=== PATIENT | male | born 1980 | race Caucasian/White ===

== ENCOUNTER → 2016-09-08 | Outpatient (CLI) | payer BC ==
--- NOTE | 2016-09-08 22:05 | MR ---
EXAMINATION TYPE: MR lumbar spine wo con DATE OF EXAM: 09/08/2016 9:57 PM COMPARISON: 11/18/2014 HISTORY: Lumbago TECHNIQUE: T1 and T2 axial and sagittal images of the lumbar spine are submitted. FINDINGS: There is no abnormal signal seen within the visualized spinal cord or paraspinal soft tissu es. Exam limited by motion artifact. At L1-2 there is no disc herniation or canal stenosis. No foraminal encroachment. No degenerative dis c disease. At L2-3 there is no degenerative disc disease, disc herniation, canal stenosis, or foraminal encroach ment At L3-4 there is a new focal central large disc herniation with significant compression of the thecal sac. Neural foramina remain patent. At L4-5 there is no disc herniation or canal stenosis. No foraminal encroachment. No degenerative dis c disease At L5-S1 there is discogenic marrow changes and severe degenerative disc disease. Broad-based central disc bulging or protrusion results in mild effacement of thecal sac and moderate to severe bilateral foraminal encroachment greater on the left. IMPRESSION: 1. New large central disc herniation L3-L4 with significant compression of the thecal sac. 2. Stable severe degenerative disc disease with broad-based central disc bulging L5-S1. Mild effaceme nt of thecal sac and moderate to severe bilateral foraminal encroachment.
--- NOTE | 2016-09-08 22:12 | MR ---
EXAMINATION TYPE: MR shoulder LT wo con DATE OF EXAM: 09/08/2016 9:57 PM COMPARISON: NONE HISTORY: Pain in left shoulder TECHNIQUE: Multiplanar, multisequence imaging of the left shoulder is performed without contrast. FINDINGS: Rotator Cuff: There is bursal scuffing along the distal margin of the supraspinatus tendon. There is intrinsic abnormal signal involving the insertion and distal margin of the infraspinatus tendon johanne tible with tendinosis. There is no evidence of through thickness tear or retraction Acromioclavicular Joint: Appears to be edema involving the acromion incomplete vallecular joint and a djacent marrow. There is no significant mass effect upon the rotator cuff tendons. AC joint distance appears within normal limits. Glenohumeral Joint: Joint spaces preserved. Inferior glenohumeral ligament has a normal appearance. N o sizable joint effusion. Labrum: The labrum appears grossly intact given limitation of non-arthrogram study. Biceps Tendon: The long head of biceps is in normal location within bicipital groove. Small amount of fluid is seen in the bicipital sheath. Bone marrow signal: Marrow edema is seen within the acromion and clavicle at the level of the AC join t. No fracture line. Joint distance within normal limits. IMPRESSION: 1. Bursal scuffing along the distal margin of the supraspinatus tendon with no evidence of through th ickness tear. 2. Tendinopathy of the distal margin of the infraspinatus tendon extending to the insertion with no e vidence of through thickness tear or traction. 3. Nonspecific marrow edema involving the acromium and clavicle at the level of the AC joint. This ma y BE reactive and related the AC joint arthropathy. Correlate clinically. 4. Mild bicipital tendinosis.
== END | disposition home or self-care (01) ==
LOC: RADMRIMAIN 20:39
PROVIDERS: ATTEND Nurse Practitioner Family
DX: M51.37 Other intervertebral disc degeneration, lumbosacral region (principal); M51.27 Other intervertebral disc displacement, lumbosacral region; M67.814 Other specified disorders of tendon, left shoulder
CPT/HCPCS: 72148

== ENCOUNTER → 2016-10-03 | Outpatient (CLI) | payer BC ==
--- NOTE | 2016-10-03 20:40 | CONS ---
This patient is a 36-year-old male with previous history of substance abuse, IVDA and alcoholism, is coming in for a sleep apnea evaluation, as the patient has been noted to snore very loudly and having apneas as reported by his girlfriend. He has also woken up on multiple occasions refluxing and vomiting. This has improved upon the treatment with Prilosec. He is still, however, snoring very loud and he wakes up once or twice to go to the bathroom and urinate. He goes to bed around 9:00 to 10:00 p.m., wakes up at 6:00 a.m. in the morning. 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 He goes also for narcotic cessation meetings around 7:00 p.m. He seems to be quite alert and awake during the day. Some degree of fatigue, yet there is no major sleepiness and Bessemer score is only at 4. He sleeps in a sidewise body position. He has a bedroom TV that he on and off uses. He has gained around 60 pounds over the past 5 years at least. He has no sleep paralysis. No hallucinations. No cataplexy. He has a positive family history that his mother and aunt have both obstructive sleep apnea. Note that the patient has been history of substance free and he has quit doing IVDA/heroin for the past 18 months. He has also stopped drinking for more than 3 years. He has hepatitis C and he is being treated by Gastroenterology for chronic active hepatitis. PAST MEDICAL HISTORY: Obesity, chronic back pain, depression, hepatitis C, IVDA, hepatitis C-induced liver injury/chronic active hepatitis. Past surgical history is cholecystectomy. Drug allergies are not known. Outpatient medication includes: 1. Naprosyn and 2. [place]. SOCIAL HISTORY: The patient is a smoker 1 pack of cigarettes a day. He has remote history of alcoholism, quit 3 years ago. He has history of IVDA, clean for the past 18 months. FAMILY HISTORY: Positive for heart disease, sleep apnea, COPD, diabetes mellitus and thyroid disease in the mother, sleep apnea in the aunt and the father is not known. REVIEW OF SYSTEMS: Twelve-point review of systems was done and the positive findings were all mentioned above in the history of present illness. BP is 159/82, pulse 86, respirations 16, temperature 97.7, saturation 96% on room air, weight 283. Height is 6 feet 0 inches. Neck size 17 inches. BMI is 37.8. Mallampati class IV. GENERAL APPEARANCE: Calm, comfortable. HEENT: Short neck, crowding posterior pharynx. There is no goiter, neck mass. LUNGS: Diminished; otherwise clear. Heart sounds are regular rate and rhythm. Normal S1 and S2. No S3. No S4. No murmurs. ABDOMEN: Soft, nontender. No organomegaly. EXTREMITIES: No edema. No cyanosis or clubbing. IMPRESSION: 1. Obstructive sleep apnea suspected clinically. The patient needs to be further investigated. 2. Obesity, body mass index of 37.8. 3. Intravenous drug abuse, history of. 4. Chronic active hepatitis, history of. 5. Hepatitis C viral infection. 6. Depression. 7. Chronic back pain. 8. History of alcoholism. PLAN: 1. Proceed with a screening polysomnogram. 2. Encourage weight loss. 3. Look for any metabolic factors, including chronic liver disease, contributing to his chronic fatigue and tiredness. 4. Implement good sleep hygiene measures. 5. Will continue to follow.
== END | disposition home or self-care (01) ==
LOC: SLEEP 15:47
PROVIDERS: ATTEND Internal Medicine Critical Care Medicine
DX: G47.33 Obstructive sleep apnea (adult) (pediatric) (principal); E66.9 Obesity, unspecified; B19.20 Unspecified viral hepatitis C without hepatic coma; F32.9 Major depressive disorder, single episode, unspecified; M54.9 Dorsalgia, unspecified; G89.29 Other chronic pain; Z68.37 Body mass index [BMI] 37.0-37.9, adult; Z79.899 Other long term (current) drug therapy; Z79.1 Long term (current) use of non-steroidal anti-inflammatories (NSAID); F17.200 Nicotine dependence, unspecified, uncomplicated
CPT/HCPCS: 99211

== ENCOUNTER → 2016-10-10 | Outpatient (CLI) | payer BC ==
[2016-10-10 15:33] LABS: Basophils % (A) 1 %; CH 31.2; CHCM 34.1; Eosinophils # (A) 0.2 k/uL (0-0.7); Eosinophils % (A) 2 %; HCT 44.7 % (39.0-53.0); HDW 2.56; HGB 15.6 gm/dL (13.0-17.5); Luc # (Auto) 0.19; Luc % (Auto) 3; Lymphocytes # (A) 3.5 k/uL (1.0-4.8); Lymphocytes % (A) 45 %; MCH 31.9 pg (25.0-35.0); MCHC 34.8 g/dL (31.0-37.0); MCV 91.6 fL (80.0-100.0); Monocytes # (A) 0.5 k/uL (0-1.0); Monocytes % (A) 6 %; Neutrophils # (A) 3.4 k/uL (1.3-7.7); Neutrophils % (A) 44 %; RBC 4.88 m/uL (4.30-5.90); RDW 13.2 % (11.5-15.5); WBC 7.7 k/uL (3.8-10.6); WBC (Perox) 7.72
[2016-10-10 15:49] LABS: Bilirubin, Delta 0.5 mg/dL (0.0-0.2); Total Bilirubin 0.8 mg/dL (0.2-1.3); Total Protein 7.3 g/dL (6.3-8.2)
[2016-10-13 15:01] LABS: HCV Qualitative Result DETECTED (Not detected)
== END | disposition home or self-care (01) ==
LOC: LABWHC1 14:49
PROVIDERS: ATTEND Physician Assistant
DX: B18.2 Chronic viral hepatitis C (principal)
CPT/HCPCS: 36415; 80076; 85025; 87522; 87902

== ENCOUNTER 2016-11-08 11:44 | Emergency (ER) | payer BC, OTHER ==
[2016-11-08] MEDS ORDERED: SODIUM CHLORIDE 0.9% 1,000 ML IV STA (12:07)
[2016-11-08] MEDS ORDERED: ASPIRIN 81 MG CHEW PO STA (12:07)
--- NOTE | 2016-11-08 12:15 | ED ---
Chest Pain HPI - General Stated Complaint: CO Poisoning-[facility] Time Seen by Provider: 11/08/16 12:04 Source: patient, RN notes reviewed Mode of arrival: EMS Limitations: no limitations - History of Present Illness Initial Comments: 36-year-old male presents to the emergency department with a chief complaint of chest pain and shortness of breath. 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 Patient states he had this episode of chest pain that radiates up to his left chest. Patient stated he felt short of breath at this time. Patient states that that has since resolved. Patient doesn't know if his anxiety or chest pain. He is under a lot of stress. 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 The patient stated this time the chest pain is gone and he is feeling better. Patient states he is not currently having any other symptoms. Patient does admit to a family history of sister having heart attack at age 40. Patient denies any recent fever , chills, shortness of breath, back pain, abdominal pain, nausea vomiting, numbness or tingling, dysuria or hematuria, constipation or diarrhea, headaches or visual changes, or any other current symptoms. - Related Data Home Medications Medication Instructions Recorded Confirmed Gabapentin [Gabapentin] 800 mg PO QID 11/08/16 11/08/16 HYDROcodone/APAP 7.5-325MG [[place] 1 tab PO BID PRN 11/08/16 11/08/16 7.5-325] Allergies Allergy/AdvReac Type Severity Reaction Status Date / Time No Known Allergies Allergy Verified 11/08/16 12:13 Review of Systems ROS Statement: Those systems with pertinent positive or pertinent negative responses have been documented in the HPI. ROS Other: All systems not noted in ROS Statement are negative. EKG Findings - EKG Comments: EKG Findings:: normal sinus rhythm 97 bpm, normal axis, no atopy, no S-T depressions or elevations, Past Medical History Past Medical History: No Reported History Additional Past Medical History / Comment(s): chronic back pain History of Any Multi-Drug Resistant Organisms: None Reported Past Surgical History: Cholecystectomy Past Psychological History: Depression Smoking Status: Current every day smoker Past Alcohol Use History: None Reported Past Drug Use History: None Reported General Exam - General Exam Comments Initial Comments: General: The patient is awake and alert, in no distress, and does not appear acutely ill. Eye: Pupils are equal, round and reactive to light. Ears, nose, mouth and throat: There are moist mucous membranes. Neck: The neck is supple, there is no tenderness. Cardiovascular: There is a regular rate and rhythm. No murmur, rub or gallop is appreciated. Respiratory: Lungs are clear to auscultation, respirations are non-labored, breath sounds are equal. No wheezes, stridor, rales, or rhonchi. Gastrointestinal: Soft, non-distended, non-tender abdomen without masses or organomegaly noted. There is no rebound or guarding present. No CVA tenderness. Bowel sounds are unremarkable. Back: There is no tenderness to palpation in the midline. There is no obvious deformity. No rashes noted. Musculoskeletal: Normal ROM, no tenderness, There is no pedal edema. There is no calf tenderness or swelling. Sensation intact. Pulses equal bilaterally 2+. Neurological: CN II-XII intact, There are no obvious motor or sensory deficits. Coordination appears grossly intact. Speech is normal. Skin: Skin is warm and dry and no rashes or lesions are noted. Psychiatric: Cooperative, appropriate mood & affect, normal judgment. Limitations: no limitations Course Vital Signs 11/08/16 11/08/16 12:09 13:27 Temperature 98 F Pulse Rate 96 Respiratory 18 Rate Blood Pressure 113/71 O2 Sat by Pulse 96 99 Oximetry Chest Pain MDM - MDM 36-year-old male presents emergency Department chief complaint of chest pain. At this time patient's CO is found to be elevated. Patient was placed on a high flow nonrebreather. At this time patient's lab work is reviewed and negative besides his CO2 poisoning. However the patient did have this unusual chest pain with a history of a sister having an [place] at age 40. This time we did The patient for cardiac rule out as well as for continued oxygen for the CO poisoning. The patient decided states he cannot state that he has to go. He states he is feeling better and he will not stay here. We did discuss he could get worse this could be also in part with a heart attack and this could possibly drink to . Patient states that he understood that he is leaving and he would like to leave now. Disposition Clinical Impression: Chest pain, Carbon monoxide poisoning Disposition: Left Against Medical Advice Referrals: Makeda Onofre MD [Primary Care Provider] - 1-2 days
[2016-11-08 12:18] VITALS: RESP 18
[2016-11-08 12:52] LABS: ALT 59 U/L (21-72); AST 39 U/L (17-59); Alkaline Phosphatase 100 U/L (38-126); Anion Gap 10 mmol/L; Blood Urea Nitrogen 21 mg/dL (9-20); Calcium 9.8 mg/dL (8.4-10.2); Carbon Dioxide 24 mmol/L (22-30); Chloride 106 mmol/L (98-107); Glucose 97 mg/dL (74-99); Magnesium 1.6 mg/dL (1.6-2.3); Non-African American GFR(MDRD) >60 (>60 ml/min/1.73 sqM); Partial Thromboplastin Time 22.6 sec (22.0-30.0); Potassium 4.4 mmol/L (3.5-5.1); Prothrombin Time 10.5 sec (9.0-12.0); Sodium 140 mmol/L (137-145); Total Bilirubin 0.9 mg/dL (0.2-1.3); Total Protein 7.3 g/dL (6.3-8.2)
[2016-11-08 13:02] LABS: Basophils # (A) 0.1 k/uL (0-0.2); Basophils % (A) 1 %; CH 31.3; CHCM 33.9; Eosinophils # (A) 0.1 k/uL (0-0.7); Eosinophils % (A) 1 %; HCT 45.6 % (39.0-53.0); HDW 2.42; HGB 15.5 gm/dL (13.0-17.5); Luc # (Auto) 0.41; Luc % (Auto) 4; Lymphocytes # (A) 4.8 k/uL (1.0-4.8); Lymphocytes % (A) 41 %; MCH 31.5 pg (25.0-35.0); MCV 92.6 fL (80.0-100.0); Mean Platelet Volume 6.9; Monocytes # (A) 0.6 k/uL (0-1.0); Monocytes % (A) 5 %; Neutrophils # (A) 5.8 k/uL (1.3-7.7); Neutrophils % (A) 50 %; RBC 4.93 m/uL (4.30-5.90); RDW 13.2 % (11.5-15.5); WBC 11.7 k/uL (3.8-10.6)
--- NOTE | 2016-11-08 13:07 | XR ---
EXAMINATION TYPE: XR chest 2V DATE OF EXAM: 11/08/2016 12:49 PM COMPARISON: NONE HISTORY: Chest pain, dizziness and headache TECHNIQUE: Frontal and lateral views of the chest are obtained. FINDINGS: There is no focal air space opacity, pleural effusion, or pneumothorax seen. The cardiac silhouette size is within normal limits. Surgical clips present in the upper abdomen. The osseous st ructures are intact. IMPRESSION: No acute cardiopulmonary process.
[2016-11-08 13:25] LABS: Creatine Kinase MB 0.7 ng/mL (0.0-2.4); Troponin I 0.013 ng/mL (0.000-0.034)
[2016-11-08 14:15] VITALS: BP 131/66; PULSE 87; TEMP 98
== END 2016-11-08 14:19 | disposition left against medical advice (07) ==
LOC: EC 11:44
DX: T58.14XA Toxic effect of carbon monoxide from utility gas, undetermined, initial encounter (principal); R07.9 Chest pain, unspecified; F32.9 Major depressive disorder, single episode, unspecified; F17.200 Nicotine dependence, unspecified, uncomplicated; Z79.899 Other long term (current) drug therapy; Y92.69 Other specified industrial and construction area as the place of occurrence of the external cause; Y99.0 Civilian activity done for income or pay
CPT/HCPCS: 36415; 71020; 80053; 82375; 82550; 82553; 83735; 84484; 85025; 85610; 85730; 93005; 96360; 99285

== ENCOUNTER 2017-08-02 01:20 | Emergency (ER) | payer BC ==
--- NOTE | 2017-08-02 02:27 | ED ---
Psych HPI - General Source: patient, police, EMS, RN notes reviewed Mode of arrival: EMS <Liana Duckworth - Last Filed: 08/02/17 02:45> <Clay Olivares - Last Filed: 08/02/17 04:39> - General Chief Complaint: Psychiatric Symptoms Stated Complaint: mental health Time Seen by Provider: 08/02/17 01:23 - History of Present Illness Initial Comments: This is a 37-year-old male who presents to the emergency department for mental health evaluation. Patient was petitioned by his girlfriend for suicidal ideation. It is reported that patient made comments of suicidal ideation to his girlfriend earlier today. Patient states that he had an episode of heroin overdose yesterday. Patient states that he did take heroin prior to arrival to the emergency department. He states that he drank alcohol yesterday. Denies any visual or auditory hallucinations. Denies current suicidal or homicidal ideation. Patient has no other complaints and states that he has been feeling physically well. Denies fever, chills, chest pain, shortness of breath, abdominal pain, nausea or vomiting, constipation or diarrhea, dysuria or hematuria, numbness or tingling, headache or vision changes. (Liana Duckworth) - Related Data Home Medications Medication Instructions Recorded Confirmed Gabapentin [Gabapentin] 800 mg PO QID 11/08/16 08/02/17 HYDROcodone/APAP 7.5-325MG [[place] 1 tab PO BID PRN 11/08/16 08/02/17 7.5-325] Allergies Allergy/AdvReac Type Severity Reaction Status Date / Time No Known Allergies Allergy Verified 08/02/17 01:23 Review of Systems ROS Other: All systems not noted in ROS Statement are negative. <Liana Duckworth - Last Filed: 08/02/17 02:45> ROS Other: All systems not noted in ROS Statement are negative. <Clay Olivares - Last Filed: 08/02/17 04:39> ROS Statement: Those systems with pertinent positive or pertinent negative responses have been documented in the HPI. Past Medical History Past Medical History: No Reported History Additional Past Medical History / Comment(s): chronic back pain History of Any Multi-Drug Resistant Organisms: None Reported Past Surgical History: Cholecystectomy Past Psychological History: Depression Smoking Status: Current every day smoker Past Alcohol Use History: None Reported Past Drug Use History: None Reported <DonitaLiana - Last Filed: 08/02/17 02:45> General Exam Limitations: no limitations <Liana Duckworth - Last Filed: 08/02/17 02:45> <Clay Olivares - Last Filed: 08/02/17 04:39> - General Exam Comments Initial Comments: General: Awake and alert, well-developed; in no apparent distress. HEENT: Head atraumatic, normocephalic. Pupils are equal and pinpoint. Extraocular movements intact. Oropharynx moist without erythema or exudate. Neck: Supple. Normal ROM. Cardiovascular: Regular rate and rhythm. No murmurs, rubs or gallops. Chest symmetrical. Respiratory: Lungs clear to auscultation bilaterally. No wheezes, rales or rhonchi. Normal respiratory effort with no use of accessory muscles. Abdomen: Soft, non-tender, non-distended. No rigidity, rebound or guarding. Normal bowel sounds in all 4 quadrants. Musculoskeletal: Normal ROM, no tenderness bilateral upper and lower extremities. Skin: [place], warm and dry without rashes or lesions. Neurological: Alert and oriented x3. CN II-XII grossly intact. Speech is fluent and answers are appropriate. No focal neuro deficits. Psychiatric: Normal mood and affect. No overt signs of depression or anxiety noted. (Liana Duckworth) Vital Signs 08/02/17 01:20 Temperature 100 F H Pulse Rate 89 Respiratory 20 Rate O2 Sat by Pulse 95 Oximetry Medical Decision Making <Liana Duckworth - Last Filed: 08/02/17 02:45> <Clay Olivares - Last Filed: 08/02/17 04:39> - Medical Decision Making Patient was seen by mental health services who recommends discharge and did provide follow-up information. Patient reexamined by myself, Dr. Olivares. Patient resting comfortably in bed. Patient denies suicidal ideation. Patient does contract for safety. (Clay Olivares) - Lab Data Lab Results 08/02/17 Range/Units 03:19 Urine Opiates Screen Detected H (NotDetected) Ur Oxycodone Screen Not Detected (NotDetected) Urine Methadone Screen Not Detected (NotDetected) Ur Propoxyphene Screen Not Detected (NotDetected) Ur Barbiturates Screen Not Detected (NotDetected) U Tricyclic Antidepress Not Detected (NotDetected) Ur Phencyclidine Scrn Not Detected (NotDetected) Ur Amphetamines Screen Not Detected (NotDetected) U Methamphetamines Scrn Not Detected (NotDetected) U Benzodiazepines Scrn Not Detected (NotDetected) Urine Cocaine Screen Detected H (NotDetected) U Marijuana (THC) Screen Not Detected (NotDetected) Disposition <Liana Duckworth - Last Filed: 08/02/17 02:45> Time of Disposition: 04:39 <Clay Olivares - Last Filed: 08/02/17 04:39> Clinical Impression: Depression Disposition: HOME SELF-CARE Condition: Stable Instructions: Depression (ED) Additional Instructions: Please follow-up with primary care physician in the next day or 2 for recheck. Please follow-up with mental health services as directed. Discontinue drug and heroin use. Return for thoughts of self-harm or worsening symptoms. Referrals: Makeda Onfore MD [Primary Care Provider] - 1-2 days
[2017-08-02 03:44] LABS: Amphetamine Screen,Urine Not Detected (NotDetected); Barbiturate Screen,Urine Not Detected (NotDetected); Benzodiazepines Screen,Urine Not Detected (NotDetected); Cocaine Screen,Urine Detected (NotDetected); Methadone Screen, Urine Not Detected (NotDetected); Opiate Screen,Urine Detected (NotDetected); Oxycodone Screen, Urine Not Detected (NotDetected); Phencyclidine Screen,Urine Not Detected (NotDetected); Tricyclic Antidepressant,Urine Not Detected (NotDetected); Urn Cannabinoid Scrn Not Detected (NotDetected)
[2017-08-02 04:51] VITALS: BP 114/62; PULSE 78; RESP 18; TEMP 97.9
== END 2017-08-02 04:59 | disposition home or self-care (01) ==
LOC: EC 01:20 → SUPCPDRO 01:20 → EC 04:59
DX: F32.9 Major depressive disorder, single episode, unspecified (principal); T40.1X1D Poisoning by heroin, accidental (unintentional), subsequent encounter; F17.200 Nicotine dependence, unspecified, uncomplicated; Z79.899 Other long term (current) drug therapy
CPT/HCPCS: 80306; 82075; 99284

== ENCOUNTER 2017-08-19 12:09 | Emergency (ER) | payer BC ==
[2017-08-19 12:14] VITALS: RESP 16
--- NOTE | 2017-08-19 12:27 | ED ---
General Adult HPI - General Chief complaint: Overdose Stated complaint: Overdose Time Seen by Provider: 08/19/17 12:11 Source: patient, EMS, RN notes reviewed Mode of arrival: EMS Limitations: no limitations - History of Present Illness Initial comments: 37-year-old male presents status post heroin overdose. Patient is brought in by EMS, he was found by EMS, agonal, cyanotic with pinpoint pupils. IV was established and 2 mg of IV Narcan was administered. Patient did have one episode of vomiting. Upon Arrival patient is alert and oriented, no respiratory distress. Normal respirations. Patient has no complaints. Denies any suicidal ideation or suicide attempt with this overdose. He does admit to using IV heroin. He denies taking any additional medications. - Related Data Home Medications Medication Instructions Recorded Confirmed Gabapentin [Gabapentin] 800 mg PO QID 11/08/16 08/02/17 HYDROcodone/APAP 7.5-325MG [[place] 1 tab PO BID PRN 11/08/16 08/02/17 7.5-325] Allergies Allergy/AdvReac Type Severity Reaction Status Date / Time No Known Allergies Allergy Verified 08/02/17 01:23 Review of Systems ROS Statement: Those systems with pertinent positive or pertinent negative responses have been documented in the HPI. ROS Other: All systems not noted in ROS Statement are negative. Past Medical History Past Medical History: No Reported History Additional Past Medical History / Comment(s): chronic back pain History of Any Multi-Drug Resistant Organisms: None Reported Past Surgical History: Cholecystectomy Past Psychological History: Depression Smoking Status: Current every day smoker Past Alcohol Use History: None Reported Past Drug Use History: Heroin General Exam Limitations: no limitations General appearance: alert, in no apparent distress Head exam: Present: atraumatic, normocephalic Eye exam: Present: normal appearance, PERRL ENT exam: Present: normal exam Neck exam: Present: normal inspection. Absent: tenderness, meningismus Respiratory exam: Present: normal lung sounds bilaterally. Absent: respiratory distress Cardiovascular Exam: Present: regular rate, normal rhythm GI/Abdominal exam: Present: soft. Absent: distended, tenderness Extremities exam: Present: normal inspection, full ROM. Absent: tenderness Neurological exam: Present: alert, oriented X3, CN II-XII intact. Absent: motor sensory deficit Psychiatric exam: Present: normal affect, normal mood. Absent: suicidal ideation Skin exam: Present: warm, intact, diaphoretic Course Vital Signs 08/19/17 08/19/17 08/19/17 12:10 12:43 13:28 Pulse Rate 99 89 Respiratory 16 16 Rate Blood Pressure 138/77 123/66 119/83 O2 Sat by Pulse 94 L 92 L 93 L Oximetry Medical Decision Making - Medical Decision Making Patient presents after heroin overdose. He is by the stable, well appearing emergency department. No need for re-dosing of Narcan. Approximately one hour into his ER stay, patient elopes. Prefer the patient stay for 3 hours of observation, however he left prior to this. Disposition Clinical Impression: Poisoning by opiate or related narcotic, Accidental drug ingestion Disposition: Left Against Medical Advice Condition: Good Referrals: Makeda Onofre MD [Primary Care Provider] - 1-2 days
[2017-08-19 12:43] VITALS: PULSE 89
[2017-08-19 13:28] VITALS: BP 119/83
== END 2017-08-19 13:46 | disposition left against medical advice (07) ==
LOC: EC 12:09
DX: T40.1X1A Poisoning by heroin, accidental (unintentional), initial encounter (principal); F17.200 Nicotine dependence, unspecified, uncomplicated; Z79.899 Other long term (current) drug therapy
CPT/HCPCS: 99284

== ENCOUNTER 2017-10-02 00:02 | Emergency (ER) | payer BC ==
--- NOTE | 2017-10-02 00:33 | ED ---
General Adult HPI - General Chief complaint: Overdose Stated complaint: Overdose Time Seen by Provider: 10/02/17 00:15 Source: patient, RN notes reviewed Mode of arrival: EMS Limitations: no limitations - History of Present Illness Initial comments: This is a 37-year-old male who presents emergency Department admitting him that he had done heroin and methamphetamines. Patient states he doesn't remember exactly what happened but EMS reported that the patient unresponsiveness swelling of the: He arrived he was somewhat responsive but they gave Narcan he came back to alert and oriented 3. Currently patient has no complaints. Patient denies headache patient denies any chest pain patient denies palpitations difficulty breathing shortness of breath per patient denies abdominal pain patient denies nausea vomiting or diarrhea. Patient denies any suicidal homicidal ideations. Patient states that he has been sober in the past and get their again. Patient denies any recent fever chills or cough. - Related Data Home Medications Medication Instructions Recorded Confirmed Gabapentin [Gabapentin] 800 mg PO QID 11/08/16 08/02/17 HYDROcodone/APAP 7.5-325MG [[place] 1 tab PO BID PRN 11/08/16 08/02/17 7.5-325] Allergies Allergy/AdvReac Type Severity Reaction Status Date / Time No Known Allergies Allergy Verified 10/02/17 00:20 Review of Systems ROS Statement: Those systems with pertinent positive or pertinent negative responses have been documented in the HPI. ROS Other: All systems not noted in ROS Statement are negative. Past Medical History Past Medical History: No Reported History Additional Past Medical History / Comment(s): chronic back pain History of Any Multi-Drug Resistant Organisms: None Reported Past Surgical History: Cholecystectomy Past Psychological History: Depression Smoking Status: Current every day smoker Past Alcohol Use History: None Reported Past Drug Use History: Heroin General Exam - General Exam Comments Initial Comments: GENERAL: Patient is well-developed and well-nourished. Patient is nontoxic and well- hydrated and is in no acute distress. ENT: Neck is soft and supple. No significant lymphadenopathy is noted. Oropharynx is clear. Moist mucous membranes. Neck has full range of motion without eliciting any pain. EYES: The sclera were anicteric and conjunctiva were pink and moist. Extraocular movements were intact and pupils were equal round and reactive to light. Eyelids were unremarkable. PULMONARY: Unlabored respirations. Good breath sounds bilaterally. No audible rales rhonchi or wheezing was noted. CARDIOVASCULAR: There is a regular rate and rhythm without any murmurs gallops or rubs. ABDOMEN: Soft and nontender with normal bowel sounds. SKIN: Skin is clear with no lesions or rashes and otherwise unremarkable. NEUROLOGIC: Patient is alert and oriented x3. Cranial nerves II through XII are grossly intact. Motor and sensory are also intact. Normal speech, volume and content. Symmetrical smile. MUSCULOSKELETAL: Normal extremities with adequate strength and full range of motion. LYMPHATICS: No significant lymphadenopathy is noted PSYCHIATRIC: Normal psychiatric evaluation. Limitations: no limitations Course Vital Signs 10/02/17 10/02/17 10/02/17 00:15 00:57 01:35 Temperature 97.9 F 97.2 F L 97.0 F L Pulse Rate 90 83 87 Respiratory 22 14 14 Rate Blood Pressure 164/87 122/58 119/63 O2 Sat by Pulse 99 99 97 Oximetry Medical Decision Making - Medical Decision Making EKG shows sinus rhythm at 70 bpm MN interval is 134 QRS is 76 QT interval 376 QTC is 428. Patient's EKG shows no ST segment elevation or depression or T wave abnormalities are noted. Patient remained asymptomatic throughout the ED course. Patient was requesting to go home. Disposition Clinical Impression: Heroin overdose Disposition: HOME SELF-CARE Condition: Good Instructions: Narcotic Abuse (ED) Is patient prescribed a controlled substance at discharge?: No Referrals: Makeda Onofre MD [Primary Care Provider] - 1-2 days Time of Disposition: 01:19
[2017-10-02 00:59] VITALS: RESP 14
[2017-10-02 01:36] VITALS: BP 119/63; PULSE 87; TEMP 97
== END 2017-10-02 01:41 | disposition home or self-care (01) ==
LOC: EC 00:02
DX: T40.1X1A Poisoning by heroin, accidental (unintentional), initial encounter (principal); T43.621A Poisoning by amphetamines, accidental (unintentional), initial encounter; F17.200 Nicotine dependence, unspecified, uncomplicated; Z79.899 Other long term (current) drug therapy
CPT/HCPCS: 99284

== ENCOUNTER 2017-10-02 16:39 | Emergency (ER) | payer BC ==
[2017-10-02 16:47] LABS: Glucose,Whole Blood 126 mg/dL (75-99)
--- NOTE | 2017-10-02 17:00 | ED ---
General Adult HPI - General Chief complaint: Overdose Stated complaint: Overdose Time Seen by Provider: 10/02/17 16:42 Source: patient, EMS, RN notes reviewed, old records reviewed Mode of arrival: ambulatory Limitations: no limitations - History of Present Illness Initial comments: This is a 37-year-old male to the ER for evaluation. Patient resents today for evaluation of heroin overdose. Patient was in ER last night for similar issue. Patient was given Narcan by girlfriend, still remains somnolent. EMS, IV was started given Narcan again. Patient arousable here in emergency room, denies any drugs or alcohol aside from heroin - Related Data Home Medications Medication Instructions Recorded Confirmed Gabapentin [Gabapentin] 800 mg PO QID 11/08/16 10/02/17 DULoxetine HCL [Cymbalta] 30 mg PO DAILY 10/02/17 10/02/17 Allergies Allergy/AdvReac Type Severity Reaction Status Date / Time No Known Allergies Allergy Verified 10/02/17 16:46 Review of Systems ROS Statement: Those systems with pertinent positive or pertinent negative responses have been documented in the HPI. ROS Other: All systems not noted in ROS Statement are negative. Past Medical History Past Medical History: No Reported History Additional Past Medical History / Comment(s): chronic back pain History of Any Multi-Drug Resistant Organisms: None Reported Past Surgical History: Cholecystectomy Past Psychological History: Depression Smoking Status: Current every day smoker Past Alcohol Use History: None Reported Past Drug Use History: Heroin General Exam Limitations: no limitations, altered mental status General appearance: alert, in no apparent distress, lethargic Head exam: Present: atraumatic, normocephalic, normal inspection Eye exam: Present: normal appearance, PERRL, EOMI. Absent: scleral icterus, conjunctival injection, periorbital swelling ENT exam: Present: normal exam, mucous membranes moist Neck exam: Present: normal inspection. Absent: tenderness, meningismus, lymphadenopathy Respiratory exam: Present: normal lung sounds bilaterally. Absent: respiratory distress, wheezes, rales, rhonchi, stridor Cardiovascular Exam: Present: regular rate, normal rhythm, normal heart sounds. Absent: systolic murmur, diastolic murmur, rubs, gallop, clicks GI/Abdominal exam: Present: soft, normal bowel sounds. Absent: distended, tenderness, guarding, rebound, rigid Extremities exam: Present: normal inspection, full ROM, normal capillary refill. Absent: tenderness, pedal edema, joint swelling, calf tenderness Back exam: Present: normal inspection Neurological exam: Present: alert, oriented X3, CN II-XII intact Psychiatric exam: Present: normal affect, normal mood Skin exam: Present: warm, dry, intact, normal color. Absent: rash Course Vital Signs 10/02/17 10/02/17 10/02/17 16:43 17:22 17:44 Temperature 99.1 F Pulse Rate 88 98 97 Respiratory 16 16 18 Rate Blood Pressure 154/81 154/86 148/74 O2 Sat by Pulse 94 L 96 97 Oximetry - Reevaluation(s) Reevaluation #1: 10/02/17 18:39 Patient does have improvement with Narcan EKG Findings - EKG Comments: EKG Findings:: EKG shows normal sinus rhythm rate of 86, KS 170, QRS 88, QTc 435 Medical Decision Making - Medical Decision Making 37 male the ER with heroin overdose, recent history of heroin overdose, patient will be discharged home - Lab Data Lab Results 10/02/17 Range/Units 16:46 POC Glucose (mg/dL) 126 H (75-99) mg/dL POC Glu Community Health Advisor ID Norma Dickinson Disposition Clinical Impression: Heroin overdose Disposition: HOME SELF-CARE Condition: Fair Instructions: Narcotic Abuse (ED) Is patient prescribed a controlled substance at discharge?: No If prescribed controlled substance>3 days was MAPS reviewed?: No When asked, does pt state using other controlled substances?: No Referrals: Makeda Onofre MD [Primary Care Provider] - 1-2 days
[2017-10-02] MEDS ORDERED: SODIUM CHLORIDE 0.9% 1,000 ML IV STA (17:13)
[2017-10-02] MEDS ORDERED: NALOXONE 0.4 MG/ML 10 ML VIAL IVP STA ×2 (17:13→18:45)
[2017-10-02] MEDS ORDERED: ONDANSETRON 4 MG/2 ML VIAL IVP STA (17:13)
[2017-10-02 19:37] VITALS: BP 156/92; PULSE 96; RESP 20; TEMP 99
== END 2017-10-02 19:38 | disposition home or self-care (01) ==
LOC: EC 16:39
DX: T40.1X1A Poisoning by heroin, accidental (unintentional), initial encounter (principal); R41.82 Altered mental status, unspecified; F32.9 Major depressive disorder, single episode, unspecified; F17.200 Nicotine dependence, unspecified, uncomplicated; Z79.899 Other long term (current) drug therapy
CPT/HCPCS: 36415; 93005; 99285; 96374; 96375; 96376; 96361; J2310; J2405

== ENCOUNTER → 2018-08-08 | Outpatient (CLI) | payer OTHER ==
[2018-08-07 10:55] VITALS: BMI 36.9
[2018-08-08 11:15] VITALS: BP 130/78; PULSE 80; RESP 16
--- NOTE | 2018-08-08 13:00 | P.PAINCN ---
History of Present Illness - Reason for Consult Consult date: 08/08/18 - History of Present Illness Troy is a 38-year-old gentleman who presents today as a new patient consult for low back pain. He has a history of low back pain for many years. He is here today because his back pain is causing significant disability and feels that he is unable to work. 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 He is also recovering from substance abuse disorder. He's been clean for 8 months time. His back pain he reports back back pain in his lumbar spine which radiates into both legs. He feels that the sharp shooting pain going down his back into both legs. He feels stiff in the morning and stiff when getting up out of a chair. He denies any bowel or bladder incontinence or any new onset weakness in his lower extremities. He does not use any medications at this time. He has 5 children and lives with his family a home. Past Medical History Past Medical History: GERD/Reflux Additional Past Medical History / Comment(s): chronic back pain History of Any Multi-Drug Resistant Organisms: None Reported Past Surgical History: Cholecystectomy Past Anesthesia/Blood Transfusion Reactions: No Reported Reaction Past Psychological History: Anxiety, Depression, PTSD Smoking Status: Current every day smoker Past Alcohol Use History: None Reported Additional Past Alcohol Use History / Comment(s): SMOKES < 1 PPD SINCE AGE 14 Past Drug Use History: None Reported Additional Drug Use History / Comment(s): LAST USED HEROIN OR COCAINE ABOUT 9 MONTHS AGO - Past Family History Mother Family Medical History: No Reported History Medications and Allergies Home Medications Medication Instructions Recorded Confirmed Type Gabapentin 800 mg PO QID 11/08/16 08/08/18 History DULoxetine HCL [Cymbalta] 60 mg PO DAILY 08/07/18 08/08/18 History Ibuprofen [Motrin] 800 mg PO Q8H PRN 08/07/18 08/08/18 History Loratadine [Claritin] 10 mg PO DAILY 08/07/18 08/08/18 History Omeprazole 20 mg PO DAILY 08/07/18 08/08/18 History Allergies Allergy/AdvReac Type Severity Reaction Status Date / Time No Known Allergies Allergy Verified 08/08/18 10:23 Physical Exam Vitals: Vital Signs Pulse Resp BP Pulse Ox 08/08/18 10:23 80 16 130/78 96 General: Awake and alert oriented 3 no distress Respiratory exam: No audible wheezing no accessory muscle usage Cardiovascular exam: regular rate, palpable bilateral pulses, no lower extremity edema Abdominal exam: No distention nontender to palpation Cervical spine: Normal alignment, Spurling's negative, facet loading negative Lumbar spine: Loss of lumbar lordosis, normal alignment, tender to palpation over bilateral paraspinal muscles, facet loading is positive bilaterally. Straight leg raise is positive. Limited range of motion Sacroiliac joints: Nontender to palpation, DHRUV is negative, Gaenselon negative Neuro exam: Normal sensation in bilateral upper extremities, deep tendon reflexes are 2+ bilateral upper extremities. Normal sensation in bilateral lower extremities. Deep tendon reflexes are 1 + in lower extremities Psych exam: Cooperative, appropriate mood Assessment and Plan Assessment: Lumbar radiculopathy History of substance abuse Plan: At on today's visit I discussed with the patient risks benefits and alternatives to performing an epidural steroid injection at the L5-S1 level. He is very excited about having the procedure done. I discussed with them that we may have to repeat it more than once to achieve maximal comfort. I discussed with him his MRI findings and advised him that if he does not get better after a series of epidurals that we may have to send in to see a surgeon. PQRS Measure Charge Sheet PQRS Narrative: Smoking Status Current every day smoker Do You Want the Pneumonia No Vaccine AT THIS TIME? Blood Pressure 130/78 Pain Intensity [Bilateral 6 Lower Back] Scale Used Numeric (1 - 10) Hx Alcohol Use (MH) No Home Medications: Ambulatory Orders Gabapentin 800 mg PO QID 11/08/16 DULoxetine HCL [Cymbalta] 60 mg PO DAILY 08/07/18 Ibuprofen [Motrin] 800 mg PO Q8H PRN 08/07/18 Loratadine [Claritin] 10 mg PO DAILY 08/07/18 Omeprazole 20 mg PO DAILY 08/07/18
== END ==
LOC: PNWHC3 10:20
PROVIDERS: ATTEND Hospitalist
DX: M54.16 Radiculopathy, lumbar region (principal); F19.11 Other psychoactive substance abuse, in remission; F17.200 Nicotine dependence, unspecified, uncomplicated; Z79.899 Other long term (current) drug therapy; Z79.1 Long term (current) use of non-steroidal anti-inflammatories (NSAID)
CPT/HCPCS: 99201

== ENCOUNTER 2018-08-20 06:12 | Day surgery (SDC) | payer OTHER ==
[2018-08-14 15:11] VITALS: BMI 36.9
[~2018-08-20 06:12] MED LIST: SODIUM CHLORIDE 0.9% 500 ML 500 ML IV SCH
[2018-08-20 06:46] VITALS: RESP 16; TEMP 96.4
[2018-08-20] MEDS ORDERED: LACTATED RINGERS 1,000 ML IV ONE (06:46)
[2018-08-20] MEDS ORDERED: LIDOCAINE 1% 20 ML VIAL (10MG/ML) FOR IV START INTRADERMA ONE (06:47)
--- NOTE | 2018-08-20 07:01 | P.PCN ---
Date of Procedure: 08/20/18 Procedure(s) Performed: PREOPERATIVE DIAGNOSIS: Lumbar radiculopathy POSTOPERATIVE DIAGNOSIS: Lumbar radiculopathy PROCEDURE 1. Lumbar epidural steroid injection under fluoroscopic guidance at the L5-S1 level. 2. Lumbar epidurogram. ANESTHESIA: Local with 1% lidocaine 3 ml and , moderate sedation with intravenous Versed 2 mg ,and fentanyle 100 Mcg EBL: Minimal PROCEDURE INDICATION: The patient with low back pain and radiculitis symptoms unresponsive to conservative treatment. Fluoroscopy was used to optimize visualization of the needle placement and to maximize safety. PROCEDURE DESCRIPTION / TECHNIQUE: The patient was seen and identified in the preoperative area. Risks, benefits , complications including but not limited to infections ,bleeding ,allergic reaction to the medications ,nerve damage and not complete pain releife , and alternatives were discussed with the patient. The patient agreed to proceed with the procedure and signed the consent. IV was started, and vital signs were stable. Patient was taken to the OR and time out was completed. The patient was placed in the prone position on procedure table and a pillow was placed under the abdomen to reduce lumbar lordosis. The lumbosacral area was prepped and draped in the usual sterile fashion.ere closely monitored during the procedure. Conscious sedation was used during the procedure to decrease patients anxiety. Vital signs was monitered during the entire procedure. Using anterior-posterior fluoroscopy, the L5-S1 interlaminar space was identified and the skin over this site was marked and then infiltrated with 1% lidocaine subcutaneously. Subsequently, a 20-gauge Tuohy epidural needle was inserted and advanced toward the epidural space using the ``Loss of resistance technique and guided by AP and lateral fluoroscopy. The correct needle position in the epidural space was verified with the injection of 2 mL of the water soluble contrast dye Isovue 200 contrast and observing an excellent epidurogram with the epidural spread of the dye, after negative aspiration for blood and CSF and in the absence of paresthesias. Again after negative aspiration, a 6 ml mixture containing 80 mg of Depo-medrol , and 2 ml of preservative free Normal Saline, and 2 ml of preservative free lidocaine 1% solution was injected and a washout of epidurogram was seen. Needle was withdrawn intact, skin was cleansed, and bandages were applied. COMPLICATIONS: None DISPOSITION / PLANS: The patient was placed in a supine position and transferred to the recovery area in a stable condition for observation. There was no evidence of lower extremity motor or sensory deficit after the procedure. Patient was discharged from the recovery room after meeting discharge criteria. Home discharge instructions were given to the patient by the staff. The patient was reexamined prior to discharge. The patient will schedule a follow up in the clinic in 2-4 weeks.
[2018-08-20] MEDS ORDERED: IV FLUID CONTINUATION 1,000 ML IV ONE (07:08)
[2018-08-20 07:26] VITALS: BP 127/84; PULSE 79
--- NOTE | 2018-08-20 08:25 | FL ---
Fluoroscopy HISTORY: Pain 6 seconds fluoroscopy time supplied to the referring clinician. 1 intraoperative C-arm images docume nt the procedure. See dictated report from anesthesia.
== END 2018-08-20 07:46 | disposition home or self-care (01) ==
LOC: ORPAIN 06:12
PROVIDERS: ATTEND Specialist
DX: M54.16 Radiculopathy, lumbar region (principal)
CPT/HCPCS: 62323; J2250; J3301; J3010; Q9966

== ENCOUNTER 2018-09-04 07:32 | Day surgery (SDC) | payer OTHER ==
[2018-08-30 08:37] VITALS: BMI 34.2
[2018-09-04] MEDS ORDERED: LACTATED RINGERS 1,000 ML IV ONE (07:50)
[2018-09-04 07:51] VITALS: TEMP 97.7
[2018-09-04] MEDS ORDERED: LIDOCAINE 1% 20 ML VIAL (10MG/ML) FOR IV START INTRADERMA ONE (07:53)
--- NOTE | 2018-09-04 08:59 | P.PCN ---
Date of Procedure: 09/04/18 Surgeon: Mary Rust Pathology: none sent Condition: stable Disposition: PACU Description of Procedure: PREOPERATIVE DIAGNOSIS: 1-Lumbar radiculopathy 2- Lumber Degenerative Disc Diseases. POSTOPERATIVE DIAGNOSIS: 1-Lumbar radiculopathy. 2-Lumbar Degenerative Disc Diseases PROCEDURE 1. Lumbar epidural steroid injection under fluoroscopic guidance at the L5-S1 level in the right paramedian approach 2. Lumbar epidurogram. ANESTHESIA: Local with 1% lidocaine; and IV moderate conscious sedation with Versed and fentanyl EBL: Minimal PROCEDURE INDICATION: The patient with low back pain and radiculitis symptoms unresponsive to conservative treatment. Fluoroscopy was used to optimize visualization of the needle placement and to maximize safety. PROCEDURE DESCRIPTION / TECHNIQUE: The patient was seen and identified in the preoperative area. Risks, benefits, complications including but not limited to infections ,bleeding ,allergic reaction to the medications ,nerve damage and not complete pain relief , and alternatives were discussed with the patient. The patient agreed to proceed with the procedure and signed the consent. IV was started, and vital signs were stable. Patient was taken to the OR and time out was completed. The patient was placed in the prone position on procedure table and a pillow was placed under the abdomen to reduce lumbar lordosis. The lumbosacral area was prepped and draped in the usual sterile fashion with ChloraPrep.Patient was closely monitored during the procedure. Conscious sedation was used during the procedure to decrease patients anxiety. Vital signs were monitered during the entire procedure. Using anterior-posterior fluoroscopy, the L5-S1 interlaminar space was identified and the skin over this site was marked and then infiltrated with 1% lidocaine subcutaneously. Subsequently, a 20-gauge Tuohy epidural needle was inserted and advanced toward the epidural space using the Loss of resistance to air technique and guided by AP and lateral fluoroscopy. The correct needle position in the epidural space was verified with the injection of 1 mL of the water soluble contrast dye Omnipaque 180 contrast and observing an excellent epidurogram with the epidural spread of the dye, after negative aspiration for blood and CSF and in the absence of paresthesias. Again after negative aspiration, a 8 ml mixture containing 40 mg of Kenalog and 5 ml of preservative free Normal Saline, and 2 ml of preservative free ropivacaine 0.5% solution was injected and a washout of epidurogram was seen. Needle was withdrawn intact, skin was cleansed, and bandages were applied. patient tolerated procedure well and was transferred to PACU in stable condition. COMPLICATIONS: None DISPOSITION / PLANS: The patient was placed in a supine position and transferred to the recovery area in a stable condition for observation. There was no evidence of lower extremity motor or sensory deficit after the procedure. Patient was discharged from the recovery room after meeting discharge criteria. Home discharge instructions were given to the patient by the staff. The patient was reexamined prior to discharge. The patient will schedule a follow up
[2018-09-04] MEDS ORDERED: IV FLUID CONTINUATION 1,000 ML IV ONE (09:05)
[2018-09-04 09:09] VITALS: RESP 16
[2018-09-04 09:39] VITALS: BP 141/95; PULSE 86
--- NOTE | 2018-09-04 10:43 | FL ---
Fluoroscopy HISTORY: Pain 4 seconds fluoroscopy time supplied to the referring clinician. 2 intraoperative C-arm images docume nt the procedure. See dictated report from anesthesia.
== END 2018-09-04 09:34 | disposition home or self-care (01) ==
LOC: ORPAIN 07:32
PROVIDERS: ATTEND Anesthesiology
DX: M51.16 Intervertebral disc disorders with radiculopathy, lumbar region (principal)
CPT/HCPCS: 62323; J2250; J3301; Q9966

== ENCOUNTER → 2018-09-30 | Outpatient (CLI) | payer OTHER ==
[2018-09-30 11:30] VITALS: BP 137/95; PULSE 87; RESP 16
--- NOTE | 2018-09-30 11:41 | P.PN ---
Subjective Progress Note Date: 09/30/18 Troy is a 30-year-old gentleman who presents today for follow-up. He has a chronic history of back pain. He presented 2 months ago as an initial consult for low back pain. He has a history of degenerative disc disease with lumbar radiculopathy. He reports he is doing well overall still has some back pain but reports he is able to work now. 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 There are some things that causing limitation which include bending over or standing bent over for long periods of time. He is able to stand with periods of rest. He reports he is going to the gym at the [facility]. He has back pain which is sharp sometimes shooting pain but mostly aching dull pain across his back and into his legs. He denies any lower extremity weakness. He denies any bowel or bladder incontinence. He has a history of substance abuse is not interested in any medications. He does have ibuprofen at home which he uses. He reports she's had some improvement with previous Toradol injections. We did perform a lumbar epidural at the L5-S1 level about one month ago when he reports he had good relief for one to 2 weeks but was subsequently transient. Objective - Vital Signs Vital signs: Vital Signs Temp Pulse 87 09/30/18 11:27 Resp 16 09/30/18 11:27 BP 137/95 09/30/18 11:27 Pulse Ox 94 L 09/30/18 11:27 Intake & Output 09/29/18 09/30/18 09/30/18 18:59 06:59 18:59 Weight 127.006 kg - Exam General: Awake and alert oriented 3 no distress Respiratory exam: No audible wheezing no accessory muscle usage Cardiovascular exam: regular rate, palpable bilateral pulses, no lower extremity edema Abdominal exam: No distention nontender to palpation Cervical spine: Normal alignment, Spurling's negative, facet loading negative Lumbar spine: Loss of lumbar lordosis, normal alignment, tender to palpation over bilateral paraspinal muscles, facet loading is positive bilaterally. Straight leg raise is positive bilateral Sacroiliac joints: Nontender to palpation, DHRUV is negative, Gaenselon negative Neuro exam: Normal sensation in bilateral upper extremities, deep tendon reflexes are 2+ bilateral upper extremities. Normal sensation in bilateral lower extremities. Deep tendon reflexes are 1+ in lower extremities Psych exam: Cooperative, appropriate mood Assessment and Plan Assessment: #1 lumbar radiculopathy #2 degenerative disc disease Plan: At this point I believe the patient is doing well. We will follow-up with him in 3 months time. I advised him to continue with his exercise routine. I discussed that if his back pain becomes significantly worse he should give us a call we can potentially schedule for an epidural injection. Advise him to continue the ibuprofen as needed. I did advise him to also uses gabapentin as needed. Continue with he and cold alternating offer some relief.
== END ==
LOC: PNWHC3 11:06
PROVIDERS: ATTEND Hospitalist
DX: M51.16 Intervertebral disc disorders with radiculopathy, lumbar region (principal); Z79.1 Long term (current) use of non-steroidal anti-inflammatories (NSAID); Z79.899 Other long term (current) drug therapy
CPT/HCPCS: 99211

== ENCOUNTER → 2018-10-02 | Outpatient (CLI) | payer OTHER ==
--- NOTE | 2018-10-02 22:01 | MR ---
EXAMINATION TYPE: MR brain wo con DATE OF EXAM: 10/02/2018 COMPARISON: None HISTORY: R 51 headache CONTRAST: Performed utilizing 0 mL intravenous Gadavist gadolinium contrast. TECHNIQUE: Multiplanar, multiecho imaging on a 3.0 Linn magnet is performed through the brain. Stud y is performed within 24 hours of arrival to the hospital. The craniovertebral junction is normal. The pituitary is normal. Diffusion-weighted imaging is performed. No abnormal hyperintensity is present to suggest an acute i ntracranial infarct or acute ischemic change. There is a punctate hyperintensity within the subcortical white matter of the left centrum semiovale. This is not out of proportion to the patient age. Ventricles and sulci are appropriate for the patient age. Temporal lobes are symmetrical. Internal auditory canals appear unremarkable. Paranasal sinuses are clear. Mastoid air cells are clear IMPRESSIONS: 1. Unremarkable MRI brain
== END ==
LOC: RADMRIMAIN 18:24
PROVIDERS: ATTEND Family Medicine
DX: G44.52 New daily persistent headache (NDPH) (principal); H53.8 Other visual disturbances; R22.0 Localized swelling, mass and lump, head
CPT/HCPCS: 70551

== ENCOUNTER → 2018-12-23 | Outpatient (CLI) | payer OTHER ==
[2018-12-23 14:15] VITALS: BP 132/86; PULSE 108; RESP 16
--- NOTE | 2018-12-23 15:06 | P.PAINPG ---
Subjective Progress Note Date: 12/23/18 Troy is a 38-year-old gentleman who presents today for follow-up. He has a chronic history of back pain. He presented 6 months ago as an initial consult for low back pain. He has a history of degenerative disc disease with lumbar radiculopathy. He reports a return of his low back pain with radiation to right posterior thigh, back of the knee, calf and into the foot with associated paresthesias in these locations. He does not report any new weakness, bowel or bladder incontinence. 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 There are some things that causing limitation which include bending over or standing bent over for long periods of time. He is able to stand with periods of rest. He reports continuing to do his exercises at home. He has a history of substance abuse is not interested in any medications. He does have ibuprofen at home which he uses. He reports he's had some improvement with previous Toradol injections. We did perform a lumbar epidural at the L5-S1 level in August 2018 and he reports that this injection took about one week to take effect, however it was effective for about 2 months. He is interested in a repeat injection. Review of systems: 4 point review of systems was negative for new lower extremity weakness, bowel or bladder incontinence, new paresthesias Objective - Vital Signs Vital signs: Reviewed in EMR - Exam General: Awake and alert oriented 3 no distress Respiratory exam: No audible wheezing no accessory muscle usage Cardiovascular exam: no lower extremity edema Abdominal exam: No distention e Lumbar spine: Loss of lumbar lordosis, normal alignment, tender to palpation over bilateral lumbar paraspinal muscles, facet loading is positive bilaterally, right greater than left. Straight leg raise is positive on right Sacroiliac joints: Nontender to palpation, Neuro exam: Normal sensation in bilateral lower extremities. Deep tendon reflexes are 2+ in lower extremities Psych exam: Cooperative, appropriate mood Assessment and Plan Assessment: #1 lumbar radiculopathy #2 degenerative disc disease #3 lumbar spondylosis Plan: Will schedule repeat right paramedian L5-S1 interlaminar epidural steroid injection. In the future, if patient still has significant back pain, he would likely benefit from bilateral lumbar medial branch workup. I advised him to continue with his exercise routine. Advised him to continue the ibuprofen as needed. Counseling was provided regarding smoking cessation, weight loss, exercise regimen. Objective - Vital Signs Vital signs: Vital Signs Temp Pulse 108 H 12/23/18 14:12 Resp 16 12/23/18 14:12 BP 132/86 12/23/18 14:12 Pulse Ox 94 L 12/23/18 14:12 Intake & Output 12/22/18 12/23/18 12/23/18 18:59 06:59 18:59 Weight 122.47 kg PQRS Measure Charge Sheet Measure #130: Documentation of Current Meds in Medical Chart: Patient's medications documented in chart Measure #226: Tobacco Use: Screen & Cessation Intervention: Pt screened for tobacco use AND intervention given Measure #111: Pneumonia Vaccination: Pneumococcal vaccine NOT administered or previously given Measure #47: Advance Care Plan: Advance care planning discussed & documented, pt chose/unable to give Measure #412: Opioid Treatment Agreement: No documentation of signed opioid treatment agreement Measure #408: Opioid Therapy Follow-up Evaluation: Patient had NO f/u eval minimum every 3 months during opioid therapy Measure #317: Preventitive Care & Scrn High Bld Press & F/U: Normal blood pressure, f/u not required Measure #128: Body Mass Index (BMI) Screening & Follow-up: BMI documented ABOVE normal parameters - f/u documented Measure #131: Pain Assessment & Follow-up: Pain positive & plan documented, Follow-up scheduled Measure #431: Unhealthy Alcohol Use Preventative Care & Scrn: Patient not identified as an unhealthy alcohol user PQRS Narrative: Smoking Status Current every day smoker Blood Pressure 132/86 Pain Intensity [Lower Back] 7 Scale Used Numeric (1 - 10) Hx Alcohol Use (MH) No Home Medications: Ambulatory Orders Gabapentin 800 mg PO QID 11/08/16 DULoxetine HCL [Cymbalta] 60 mg PO DAILY 08/07/18 Ibuprofen [Motrin] 800 mg PO Q8H PRN 08/07/18 Loratadine [Claritin] 10 mg PO DAILY PRN 08/07/18 Omeprazole 20 mg PO DAILY 08/07/18 Albuterol Inhaler [Ventolin Hfa Inhaler] 1 - 2 puff INHALATION RT-Q6H PRN 08/14/18 Controlled Substance Measures - Controlled Substance Measures Is patient prescribed a controlled substance at discharge?: No
== END ==
LOC: PNWHC3 13:37
PROVIDERS: ATTEND Anesthesiology
DX: M51.16 Intervertebral disc disorders with radiculopathy, lumbar region (principal); M47.26 Other spondylosis with radiculopathy, lumbar region; F17.200 Nicotine dependence, unspecified, uncomplicated; Z79.899 Other long term (current) drug therapy; Z79.1 Long term (current) use of non-steroidal anti-inflammatories (NSAID)
CPT/HCPCS: 99211

== ENCOUNTER 2019-01-08 08:58 | Day surgery (SDC) | payer OTHER ==
[2019-01-03 14:56] VITALS: BMI 34.2
[~2019-01-08 08:58] MED LIST changes: +LACTATED RINGERS 1,000 ML IV SCH; -SODIUM CHLORIDE 0.9% 500 ML 500 ML IV SCH
[2019-01-08 09:58] VITALS: RESP 16; TEMP 97.2
[2019-01-08] MEDS ORDERED: LIDOCAINE 1% 20 ML VIAL (10MG/ML) FOR IV START INTRADERMA ONE (10:03)
--- NOTE | 2019-01-08 10:57 | P.PCN ---
Date of Procedure: 01/08/19 Surgeon: Mary Rust Pathology: none sent Condition: stable Disposition: PACU Description of Procedure: PREOPERATIVE DIAGNOSIS: 1-Lumbar radiculopathy 2- Lumber Degenerative Disc Diseases. POSTOPERATIVE DIAGNOSIS: 1-Lumbar radiculopathy. 2-Lumbar Degenerative Disc Diseases PROCEDURE 1. Lumbar epidural steroid injection under fluoroscopic guidance at the L5-S1 level, in the right paramedian approach 2. Lumbar epidurogram. ANESTHESIA: Local with 1% lidocaine; and IV moderate conscious sedation with Versed and fentanyl EBL: Minimal PROCEDURE INDICATION: The patient with low back pain and radiculitis symptoms unresponsive to conservative treatment. Fluoroscopy was used to optimize visualization of the needle placement and to maximize safety. PROCEDURE DESCRIPTION / TECHNIQUE: The patient was seen and identified in the preoperative area. Risks, benefits, complications including but not limited to infections ,bleeding ,allergic reaction to the medications ,nerve damage and not complete pain relief , and alternatives were discussed with the patient. The patient agreed to proceed with the procedure and signed the consent. IV was started, and vital signs were stable. Patient was taken to the OR and time out was completed. The patient was placed in the prone position on procedure table and a pillow was placed under the abdomen to reduce lumbar lordosis. The lumbosacral area was prepped and draped in the usual sterile fashion with ChloraPrep.Patient was closely monitored during the procedure. Conscious sedation was used during the procedure to decrease patients anxiety. Vital signs were monitered during the entire procedure. Using anterior-posterior fluoroscopy, the L5-S1 interlaminar space was identified and the skin over this site was marked and then infiltrated with 1% lidocaine subcutaneously. Subsequently, a 20-gauge Tuohy epidural needle was inserted and advanced toward the epidural space using the Loss of resistance to air technique and guided by AP and lateral fluoroscopy. The correct needle position in the epidural space was verified with the injection of 1 mL of the water soluble contrast dye Omnipaque 180 contrast and observing an excellent epidurogram with the epidural spread of the dye, after negative aspiration for blood and CSF and in the absence of paresthesias. Again after negative aspiration, a 8 ml mixture containing 80 mg of Kenalog and 5 ml of preservative free Normal Saline, and 2 ml of preservative free ropivacaine 0.5% solution was injected and a washout of epidurogram was seen. Needle was withdrawn intact, sk in was cleansed, and bandages were applied. patient tolerated procedure well and was transferred to PACU in stable condition. COMPLICATIONS: None DISPOSITION / PLANS: The patient was placed in a supine position and transferred to the recovery area in a stable condition for observation. There was no evidence of lower extremity motor or sensory deficit after the procedure. Patient was discharged from the recovery room after meeting discharge criteria. Home discharge instructions were given to the patient by the staff. The patient was reexamined prior to discharge. The patient will schedule a follow up in the clinic in 2-4 weeks.
[2019-01-08] MEDS ORDERED: IV FLUID CONTINUATION 1,000 ML IV ONE (11:02)
[2019-01-08 11:18] VITALS: BP 119/81; PULSE 71
--- NOTE | 2019-01-08 12:38 | FL ---
Fluoroscopy HISTORY: Pain 4 seconds fluoroscopy time supplied to the referring clinician. 2 intraoperative C-arm images docume nt the procedure. See dictated report from anesthesia.
== END 2019-01-08 11:32 | disposition home or self-care (01) ==
LOC: ORPAIN 08:58
PROVIDERS: ATTEND Anesthesiology
DX: M51.16 Intervertebral disc disorders with radiculopathy, lumbar region (principal); K21.9 Gastro-esophageal reflux disease without esophagitis; E66.3 Overweight; Z68.34 Body mass index [BMI] 34.0-34.9, adult
CPT/HCPCS: 62323; J2250; J3301; J3010; Q9966

== ENCOUNTER 2019-03-19 08:42 | Day surgery (SDC) | payer OTHER ==
[2019-03-17 14:23] VITALS: BMI 35.6
[2019-03-19 09:26] VITALS: TEMP 97
[2019-03-19] MEDS ORDERED: LIDOCAINE 1% 20 ML VIAL (10MG/ML) FOR IV START INTRADERMA ONE (09:35)
--- NOTE | 2019-03-19 10:31 | P.PCN ---
Date of Procedure: 03/19/19 Procedure(s) Performed: PREOPERATIVE DIAGNOSIS: 1-Lumbar radiculopathy 2- Lumber Degenerative Disc Diseases. POSTOPERATIVE DIAGNOSIS: 1-Lumbar radiculopathy. 2-Lumbar Degenerative Disc Diseases. PROCEDURE 1. Lumbar epidural steroid injection under fluoroscopic guidance at the L5-S1 level ( right paramedian approach ) 2. Lumbar epidurogram. ANESTHESIA: Local with 1% lidocaine; and IV moderate conscious sedation with Versed 2 mg and fentanyl 50 Mcg EBL: Minimal PROCEDURE INDICATION: The patient with low back pain and radiculitis symptoms unresponsive to conservative treatment. Fluoroscopy was used to optimize visualization of the needle placement and to maximize safety. PROCEDURE DESCRIPTION / TECHNIQUE: The patient was seen and identified in the preoperative area. Risks, benefits, complications including but not limited to infections ,bleeding ,allergic react ion to the medications ,nerve damage and not complete pain relief , and alternatives were discussed with the patient. The patient agreed to proceed with the procedure and signed the consent. IV was started, and vital signs were stable. Patient was taken to the OR and time out was completed. The patient was placed in the prone position on procedure table and a pillow was placed under the abdomen to reduce lumbar lordosis. The lumbosacral area was prepped and draped in the usual sterile fashion with ChloraPrep.Patient was closely monitored during the procedure. Conscious sedation was used during the procedure to decrease patients anxiety. Vital signs were monitered during the entire procedure. Using anterior-posterior fluoroscopy, the L5-S1 interlaminar space was identified and the skin over this site was marked and then infiltrated with 1% lidocaine subcutaneously. Subsequently, a 20-gauge Tuohy epidural needle was inserted and advanced toward the epidural space using the Loss of resistance to air technique and guided by AP and lateral fluoroscopy. The correct needle position in the epidural space was verified with the injection of 1 mL of the water soluble contrast dye Omnipaque 180 contrast and observing an excellent epidurogram with the epidural spread of the dye, after negative aspiration for blood and CSF and in the absence of paresthesias. Again after negative as piration, then mixture containing 80 mg of Depo-Medrol and 3 ml of preservative free Normal Saline, solution was injected and a washout of epidurogram was seen. Needle was withdrawn intact, skin was cleansed, and bandages were applied. patient tolerated procedure well and was transferred to PACU in stable condition. COMPLICATIONS: None DISPOSITION / PLANS: The patient was placed in a supine position and transferred to the recovery area in a stable condition for observation. There was no evidence of lower extremity motor or sensory deficit after the procedure. Patient was discharged from the recovery room after meeting discharge criteria. Home discharge instructions were given to the patient by the staff. The patient was reexamined prior to discharge. The patient will schedule a follow up
[2019-03-19] MEDS ORDERED: IV FLUID CONTINUATION 1,000 ML IV ONE ×2 (10:33)
[2019-03-19 10:37] VITALS: RESP 18
[2019-03-19 10:49] VITALS: BP 132/80; PULSE 74
--- NOTE | 2019-03-19 11:48 | FL ---
EXAMINATION TYPE: FL guided pain mgmt statistic DATE OF EXAM: 03/19/2019 HISTORY: Flouroscopy time 5 seconds of fluoroscopy provided. IMPRESSION: 1. Fluoroscopy time.
== END 2019-03-19 11:03 | disposition home or self-care (01) ==
LOC: ORPAIN 08:42
PROVIDERS: ATTEND Specialist
DX: M51.16 Intervertebral disc disorders with radiculopathy, lumbar region (principal)
CPT/HCPCS: 62323; J2250; J1030; J3010; Q9966

== ENCOUNTER 2019-10-31 15:11 | Emergency (ER) | payer OTHER ==
[2019-10-31 15:16] VITALS: PULSE 91; RESP 18; TEMP 98.5
[2019-10-31] MEDS ORDERED: LIDOCAINE 1% INJ 10MG/ML (20 ML MDV) SQ ONE (15:48)
--- NOTE | 2019-10-31 16:33 | ED ---
Wound/Laceration HPI - General Chief Complaint: Wound/Laceration Stated Complaint: L finger injury Time Seen by Provider: 10/31/19 15:26 Source: patient Mode of arrival: ambulatory Limitations: no limitations - History of Present Illness Initial Comments: Patient is a 39-year-old male presenting to the emergency Department with complaints of a laceration to his right index finger just prior to arrival. Patient states he cut his finger on a pocket knife. Patient admits to being on some meth at this time. He is very anxious, sweating. Patient does have a bundling machine operator, friend with him at this time. He states he has had a tetanus shot last year. Bleeding is controlled at this time. He denies being on blood thinners. Patient also has additional complaint of bilateral eye irritation and drainage for 1 week. He thinks he has pink eye. He denies any foreign objects into his eyes. He denies any recent fever or chills. There are no other complaints at this time. - Related Data Home Medications Medication Instructions Recorded Confirmed Gabapentin 800 mg PO QID 11/08/16 04/01/19 DULoxetine HCL [Cymbalta] 60 mg PO DAILY 08/07/18 04/01/19 Ibuprofen [Motrin] 800 mg PO Q8H PRN 08/07/18 04/01/19 Loratadine [Claritin] 10 mg PO DAILY PRN 08/07/18 04/01/19 Omeprazole 20 mg PO DAILY 08/07/18 04/01/19 Albuterol Inhaler (Mhu) [Ventolin 1 - 2 puff INHALATION Q6HR PRN 08/14/18 04/01/19 Hfa Inhaler] Cannabidiol (Cbd) Extract 0 mg PO DAILY 04/01/19 04/01/19 [Epidiolex] Previous Rx's Medication Instructions Recorded Polymyxin B-Trimeth Sulf Ophth 2 drops BOTH EYES Q4H 7 Days #1 10/31/19 [Polytrim Opthalmic] bottle Allergies Allergy/AdvReac Type Severity Reaction Status Date / Time No Known Allergies Allergy Verified 10/31/19 15:16 Review of Systems ROS Statement: Those systems with pertinent positive or pertinent negative responses have been documented in the HPI. ROS Other: All systems not noted in ROS Statement are negative. Past Medical History Past Medical History: Asthma, GERD/Reflux, Memory Impairment, Skin Disorder, Sleep Apnea/CPAP/BIPAP Additional Past Medical History / Comment(s): Chronic back pain. Sciaticia bilaterally,psoriasis."Short term memory loss". Hx Hepatitis C- "treated and not currently active." no cpap used, History of Any Multi-Drug Resistant Organisms: None Reported Past Surgical History: Cholecystectomy Additional Past Surgical History / Comment(s): PAIN CLINIC INJECTIONS Past Anesthesia/Blood Transfusion Reactions: No Reported Reaction Past Psychological History: Anxiety, Depression, PTSD Smoking Status: Current every day smoker Past Alcohol Use History: None Reported Past Drug Use History: Heroin, IV Drug Use - Past Family History Mother Family Medical History: No Reported History General Exam - General Exam Comments Initial Comments: GENERAL: Patient is very anxious, diaphoretic, appears under the influence of drugs. HEAD: Atraumatic, normocephalic. EYES: Pupils equal round and reactive to light, extraocular movements intact, sclera anicteric,. Patient has bilateral redness, yellow drainage, consistent with acute bacterial conjunctivitis. ENT: TMs normal, nares patent, oropharynx clear without exudates. Moist mucous membranes. NECK: Normal range of motion, supple without lymphadenopathy or JVD. LUNGS: Breath sounds clear to auscultation bilaterally and equal. No wheezes rales or rhonchi. HEART: Regular rate and rhythm without murmurs, rubs or gallops. ABDOMEN: Soft, nontender, normoactive bowel sounds. No guarding, no rebound. No masses appreciated. : Deferred EXTREMITIES: He should has full range of motion of his right hand and fingers. He is neurovascular intact. Normal range of motion, no pitting or edema. No clubbing or cyanosis. NEUROLOGICAL: Normal speech, normal gait. PSYCH: Normal mood, normal affect. SKIN: Warm, Dry, normal turgor, no rashes. Patient has a 1 cm laceration to the right index finger, just distal to the DIP joint. Bleeding is controlled. Limitations: no limitations Course Vital Signs 10/31/19 15:13 Temperature 98.5 F Pulse Rate 91 Respiratory 18 Rate O2 Sat by Pulse 100 Oximetry Procedures - Laceration Laceration #1 Consent Obtained: verbal consent Indication: laceration Site: other (Right index finger, distal to DIP joint no nail involvement.) Size (cm): 1 Description: linear Depth: simple, single layer Anesthetic Used: lidocaine 1% Anesthesia Technique: local infiltration Amount (mls): 2 Pre-repair: irrigated extensively Type of Sutures: nylon Size of Sutures: 4-0 Number of Sutures: 3 Technique: simple, interrupted Patient Tolerated Procedure: well Medical Decision Making - Medical Decision Making Patient is a 39-year-old male, appears to be under the influence of meth, presenting with a 1 cm laceration to his right index finger. Bleeding is controlled. Tetanus vaccine is up-to-date. Patient is also complaining of bilateral eye irritation and exam is consistent with bilateral conjunctivitis. Patient wound was cleaned and closed with 3, 40 sutures. Patient tolerated procedure well. Patient will also be given an antibiotic eye drop for conjunctivitis. He is stable for discharge. He will have sutures removed in 7- 10 days. Patient's friend/bundling machine operator is here with him now and will take him home. Patient is stable for discharge. Return parameters were discussed with the patient and his friend and they both verbalized understanding. Case discussed with Dr. Francois Disposition Clinical Impression: Laceration of right index finger, Acute bacterial conjunctivitis of both eyes Disposition: HOME SELF-CARE Condition: Stable Instructions (If sedation given, give patient instructions): Care For Your Stitches (ED), Conjunctivitis (ED) Additional Instructions: Please return to the Emergency Department if symptoms worsen or any other concerns. Use antibiotic eyedrops as prescribed Stitches need to be removed in 7-10 days. Keep wound clean and dry. Prescriptions: Polymyxin B-Trimeth Sulf Ophth [Polytrim Opthalmic] 2 drops BOTH EYES Q4H 7 Days #1 bottle Is patient prescribed a controlled substance at d/c from ED?: No Referrals: Makeda Onofre MD [Primary Care Provider] - 1-2 days
== END 2019-10-31 16:59 | disposition home or self-care (01) ==
LOC: EC 15:11
DX: S61.210A Laceration without foreign body of right index finger without damage to nail, initial encounter (principal); H10.33 Unspecified acute conjunctivitis, bilateral; S69.92XA Unspecified injury of left wrist, hand and finger(s), initial encounter; K21.9 Gastro-esophageal reflux disease without esophagitis; J45.909 Unspecified asthma, uncomplicated; F41.9 Anxiety disorder, unspecified; F32.9 Major depressive disorder, single episode, unspecified; F43.10 Post-traumatic stress disorder, unspecified; F17.200 Nicotine dependence, unspecified, uncomplicated; G47.30 Sleep apnea, unspecified; Z99.89 Dependence on other enabling machines and devices; Z79.899 Other long term (current) drug therapy; W26.0XXA Contact with knife, initial encounter
CPT/HCPCS: 99283; 12001; J2001

== ENCOUNTER 2021-01-05 14:32 | Inpatient (IN) | payer OTHER ==
[2021-01-05 14:49] LABS: Glucose,Whole Blood 492 mg/dL (75-99)
[2021-01-05] MEDS ORDERED: SODIUM CHLORIDE 0.9% 1,000 ML IV STA (15:05)
[2021-01-05] MEDS ORDERED: ONDANSETRON 4 MG/2 ML VIAL IVP STA (15:06)
[2021-01-05 15:31] LABS: Basophils # (A) 0.1 k/uL (0-0.2); Basophils % (A) 1 %; Eosinophils # (A) 0.1 k/uL (0-0.7); Eosinophils % (A) 1 %; HCT 45.4 % (39.0-53.0); HGB 16.1 gm/dL (13.0-17.5); Lymphocytes # (A) 3.3 k/uL (1.0-4.8); Lymphocytes % (A) 34 %; MCH 31.1 pg (25.0-35.0); MCHC 35.4 g/dL (31.0-37.0); MCV 87.9 fL (80.0-100.0); Monocytes # (A) 0.5 k/uL (0-1.0); Monocytes % (A) 5 %; Neutrophils # (A) 5.6 k/uL (1.3-7.7); Neutrophils % (A) 57 %; Platelet Count 383 k/uL (150-450); RBC 5.16 m/uL (4.30-5.90); RDW 13.4 % (11.5-15.5); WBC 9.8 k/uL (3.8-10.6)
[2021-01-05 15:36] LABS: Appearance,Urine Clear (Clear); Bilirubin,Urine Negative (Negative); Blood,Urine Negative (Negative); Color,Urine Light Yellow; Glucose,Urine (UA) 4+ (Negative); Leukocyte Esterase,Urine Negative (Negative); Nitrite,Urine Negative (Negative); Protein,Urine Negative (Negative); Specific Gravity,Urine 1.036 (1.001-1.035); Urobilinogen,Urine <2.0 mg/dL (<2.0)
[2021-01-05] MEDS ORDERED: INSULIN ASPART (NovoLOG) 100 UNIT/ML VIAL SQ STA (15:38)
[2021-01-05 15:39] LABS: ALT 32 U/L (4-49); AST 24 U/L (17-59); African American GFR (CKD) >90 (>60 ml/min/1.73 sqM); Albumin 4.8 g/dL (3.5-5.0); Alkaline Phosphatase 145 U/L (38-126); Amylase 79 U/L (30-110); Anion Gap 20 mmol/L; Blood Urea Nitrogen 14 mg/dL (9-20); Calcium 10.5 mg/dL (8.4-10.2); Carbon Dioxide 15 mmol/L (22-30); Chloride 98 mmol/L (98-107); Glucose 498 mg/dL (74-99); Lipase 260 U/L (23-300); Non-African American GFR(CKD) >90 (>60 ml/min/1.73 sqM); Potassium 4.4 mmol/L (3.5-5.1); Sodium 133 mmol/L (137-145); Total Bilirubin 0.8 mg/dL (0.2-1.3); Total Protein 8.1 g/dL (6.3-8.2)
[2021-01-05 15:41] LABS: Ketones,Urine 2+ (Negative)
[2021-01-05 16:00] LABS: Appearance,Urine Clear (Clear); Bilirubin,Urine Negative (Negative); Blood,Urine Negative (Negative); Color,Urine Light Yellow; Glucose,Urine (UA) 4+ (Negative); Ketones,Urine 2+ (Negative); Leukocyte Esterase,Urine Negative (Negative); Nitrite,Urine Negative (Negative); Protein,Urine Negative (Negative); Specific Gravity,Urine 1.036 (1.001-1.035); Urobilinogen,Urine <2.0 mg/dL (<2.0)
[2021-01-05] MEDS ORDERED: SODIUM CHLORIDE 0.9% 1,000 ML IV ONE (16:05)
[2021-01-05 16:19] LABS: VBG PH 7.28 (7.31-7.41)
--- NOTE | 2021-01-05 16:28 | ED ---
Recheck HPI - General Source: patient, police, RN notes reviewed Mode of arrival: ambulatory Limitations: no limitations <Charly Erazo - Last Filed: 01/05/21 16:24> <Savanah Walls - Last Filed: 01/06/21 01:15> - General Chief Complaint: Recheck/Abnormal Lab/Rx Stated Complaint: hyperglycemia Time Seen by Provider: 01/05/21 14:56 - History of Present Illness Initial Comments: Patient is a 40-year-old male that presents to the emergency department complaining of high blood sugars. He notes that recently he's been excessively thirsty urinating often and just feeling off. He notes that he's never been diagnosed with diabetes but the facility doctor has been managing with lifestyle modification. Guard and patient both state that the facility food is very carbohydrate heavy. He was a well-appearing 40-year-old male in no apparent distress during the exam interview. He denied any chest pain shortness of breath headache vomiting diarrhea constipation fever fatigue chills. (Charly Erazo) - Related Data Home Medications Medication Instructions Recorded Confirmed DULoxetine HCL [Cymbalta] 60 mg PO BID 08/07/18 01/05/21 Omeprazole 20 mg PO DAILY 08/07/18 01/05/21 Insulin Regular [HumuLIN R] See Protocol SQ AC-TID 01/05/21 01/05/21 Mirtazapine [Remeron] 30 mg PO HS 01/05/21 01/05/21 cloNIDine HCL [Catapres] 0.1 mg PO ONCE PRN 01/05/21 01/05/21 metFORMIN HCL 500 mg PO BID 01/05/21 01/05/21 Allergies Allergy/AdvReac Type Severity Reaction Status Date / Time No Known Allergies Allergy Verified 01/05/21 16:51 Review of Systems ROS Other: All systems not noted in ROS Statement are negative. <Charly Erazo - Last Filed: 01/05/21 16:24> ROS Other: All systems not noted in ROS Statement are negative. <Savanah Walls - Last Filed: 01/06/21 01:15> ROS Statement: Those systems with pertinent positive or pertinent negative responses have been documented in the HPI. Past Medical History Past Medical History: Asthma, GERD/Reflux, Memory Impairment, Skin Disorder, Sleep Apnea/CPAP/BIPAP Additional Past Medical History / Comment(s): Chronic back pain. Sciaticia bilaterally,psoriasis."Short term memory loss". Hx Hepatitis C- "treated and not currently active." no cpap used, History of Any Multi-Drug Resistant Organisms: None Reported Past Surgical History: Cholecystectomy Additional Past Surgical History / Comment(s): PAIN CLINIC INJECTIONS Past Anesthesia/Blood Transfusion Reactions: No Reported Reaction Past Psychological History: Anxiety, Depression, PTSD Smoking Status: Former smoker Past Alcohol Use History: None Reported Past Drug Use History: Heroin, IV Drug Use - Past Family History Mother Family Medical History: No Reported History <Charly Erazo - Last Filed: 01/05/21 16:24> General Exam Limitations: no limitations General appearance: alert, in no apparent distress, obese Head exam: Present: atraumatic, normocephalic, normal inspection Eye exam: Present: normal appearance, PERRL, EOMI. Absent: scleral icterus, conjunctival injection, periorbital swelling Neck exam: Present: normal inspection Respiratory exam: Present: normal lung sounds bilaterally. Absent: respiratory distress, wheezes, rales, rhonchi, stridor Cardiovascular Exam: Present: regular rate, normal rhythm, normal heart sounds. Absent: systolic murmur, diastolic murmur, rubs, gallop, clicks GI/Abdominal exam: Present: soft, normal bowel sounds. Absent: distended, tenderness, guarding, rebound, rigid Extremities exam: Present: normal inspection, full ROM, normal capillary refill. Absent: tenderness, pedal edema, joint swelling, calf tenderness Neurological exam: Present: alert, oriented X3 Psychiatric exam: Present: normal affect, normal mood Skin exam: Present: warm, dry, intact, normal color. Absent: rash <Charly Erazo - Last Filed: 01/05/21 16:24> Course Vital Signs 01/05/21 01/05/21 14:43 17:16 Temperature 98.5 F Pulse Rate 117 H 94 Respiratory 18 20 Rate Blood Pressure 124/92 112/77 O2 Sat by Pulse 95 96 Oximetry Medical Decision Making - Lab Data Result diagrams: 01/05/21 15:21 01/05/21 15:21 <Charly Erazo - Last Filed: 01/05/21 16:24> - Lab Data Result diagrams: 01/05/21 15:21 07/22/21 00:04 <Savanah Walls - Last Filed: 01/06/21 01:15> - Medical Decision Making 40-year-old male complaining of not feeling well, high blood sugar, excessive thirst and urination. Labs, 1 L normal saline ordered. Labs: CBC within normal limits, carbon dioxide 15, anion gap 20 serum glucose 498 4+ glucose in the urine and 2+ ketones in the urine, acetone positive Case discussed with Dr. Walls, 1 more liter of normal saline ordered. Patient will be admitted inpatient for diabetic ketoacidosis. Dr. plata was consulted and will set the admit. (Charly Erazo) I was available for consultation in the emergency department. The history and physical exam were done by the midlevel provider. I was consulted for this patients care. I reviewed the case with the midlevel provider and based on their presentation of the patient, I agree with the assessment, medical decision making and plan of care as documented. Chart was dictated using Dazo dictation software. Attempts were made to correct any dictation errors however some typographical errors may persist. ( Savanah Walls) - Lab Data Lab Results 01/05/21 01/05/21 01/05/21 Range/Units 14:47 15:21 15:21 WBC 9.8 (3.8-10.6) k/uL RBC 5.16 (4.30-5.90) m/uL Hgb 16.1 (13.0-17.5) gm/dL Hct 45.4 (39.0-53.0) % MCV 87.9 (80.0-100.0) fL MCH 31.1 (25.0-35.0) pg MCHC 35.4 (31.0-37.0) g/dL RDW 13.4 (11.5-15.5) % Plt Count 383 (150-450) k/uL MPV 8.0 Neutrophils % 57 % Lymphocytes % 34 % Monocytes % 5 % Eosinophils % 1 % Basophils % 1 % Neutrophils # 5.6 (1.3-7.7) k/uL Lymphocytes # 3.3 (1.0-4.8) k/uL Monocytes # 0.5 (0-1.0) k/uL Eosinophils # 0.1 (0-0.7) k/uL Basophils # 0.1 (0-0.2) k/uL VBG pH (7.31-7.41) VBG pCO2 (37-51) mmHg VBG HCO3 (24-28) mmol/L Sodium (137-145) mmol/L Potassium (3.5-5.1) mmol/L Chloride (98-107) mmol/L Carbon Dioxide (22-30) mmol/L Anion Gap mmol/L BUN (9-20) mg/dL Creatinine (0.66-1.25) mg/dL Est GFR (CKD-EPI)AfAm (>60 ml/min/1.73 sqM) Est GFR (CKD-EPI)NonAf (>60 ml/min/1.73 sqM) Glucose (74-99) mg/dL POC Glucose (mg/dL) 492 H (75-99) mg/dL POC Glu Drilling Engineer ID Jose De Jesus, Sarah Calcium (8.4-10.2) mg/dL Total Bilirubin (0.2-1.3) mg/dL AST (17-59) U/L ALT (4-49) U/L Alkaline Phosphatase (38-126) U/L Total Protein (6.3-8.2) g/dL Albumin (3.5-5.0) g/dL Amylase (30-110) U/L Lipase (23-300) U/L Urine Color Light Yellow Urine Appearance Clear (Clear) Urine pH 5.0 (5.0-8.0) Ur Specific [place] 1.036 H (1.001-1.035) Urine Protein Negative (Negative) Urine Glucose (UA) 4+ H (Negative) Urine Ketones 2+ H (Negative) Urine Blood Negative (Negative) Urine Nitrite Negative (Negative) Urine Bilirubin Negative (Negative) Urine Urobilinogen <2.0 (<2.0) mg/dL Ur Leukocyte Esterase Negative (Negative) Acetone, Qual (Negative) 01/05/21 01/05/21 01/05/21 Range/Units 15:21 15:56 16:07 WBC (3.8-10.6) k/uL RBC (4.30-5.90) m/uL Hgb (13.0-17.5) gm/dL Hct (39.0-53.0) % MCV (80.0-100.0) fL MCH (25.0-35.0) pg MCHC (31.0-37.0) g/dL RDW (11.5-15.5) % Plt Count (150-450) k/uL MPV Neutrophils % % Lymphocytes % % Monocytes % % Eosinophils % % Basophils % % Neutrophils # (1.3-7.7) k/uL Lymphocytes # (1.0-4.8) k/uL Monocytes # (0-1.0) k/uL Eosinophils # (0-0.7) k/uL Basophils # (0-0.2) k/uL VBG pH 7.28 L (7.31-7.41) VBG pCO2 41 (37-51) mmHg VBG HCO3 19 L (24-28) mmol/L Sodium 133 L (137-145) mmol/L Potassium 4.4 (3.5-5.1) mmol/L Chloride 98 (98-107) mmol/L Carbon Dioxide 15 L (22-30) mmol/L Anion Gap 20 mmol/L BUN 14 (9-20) mg/dL Creatinine 0.69 (0.66-1.25) mg/dL Est GFR (CKD-EPI)AfAm >90 (>60 ml/min/1.73 sqM) Est GFR (CKD-EPI)NonAf >90 (>60 ml/min/1.73 sqM) Glucose 498 H (74-99) mg/dL POC Glucose (mg/dL) (75-99) mg/dL POC Glu Drilling Engineer ID Calcium 10.5 H (8.4-10.2) mg/dL Total Bilirubin 0.8 (0.2-1.3) mg/dL AST 24 (17-59) U/L ALT 32 (4-49) U/L Alkaline Phosphatase 145 H (38-126) U/L Total Protein 8.1 (6.3-8.2) g/dL Albumin 4.8 (3.5-5.0) g/dL Amylase 79 (30-110) U/L Lipase 260 (23-300) U/L Urine Color Light Yellow Urine Appearance Clear (Clear) Urine pH 5.0 (5.0-8.0) Ur Specific [place] 1.036 H (1.001-1.035) Urine Protein Negative (Negative) Urine Glucose (UA) 4+ H (Negative) Urine Ketones 2+ H (Negative) Urine Blood Negative (Negative) Urine Nitrite Negative (Negative) Urine Bilirubin Negative (Negative) Urine Urobilinogen <2.0 (<2.0) mg/dL Ur Leukocyte Esterase Negative (Negative) Acetone, Qual Positive (Negative) 01/05/21 Range/Units 16:32 WBC (3.8-10.6) k/uL RBC (4.30-5.90) m/uL Hgb (13.0-17.5) gm/dL Hct (39.0-53.0) % MCV (80.0-100.0) fL MCH (25.0-35.0) pg MCHC (31.0-37.0) g/dL RDW (11.5-15.5) % Plt Count (150-450) k/uL MPV Neutrophils % % Lymphocytes % % Monocytes % % Eosinophils % % Basophils % % Neutrophils # (1.3-7.7) k/uL Lymphocytes # (1.0-4.8) k/uL Monocytes # (0-1.0) k/uL Eosinophils # (0-0.7) k/uL Basophils # (0-0.2) k/uL VBG pH (7.31-7.41) VBG pCO2 (37-51) mmHg VBG HCO3 (24-28) mmol/L Sodium (137-145) mmol/L Potassium (3.5-5.1) mmol/L Chloride (98-107) mmol/L Carbon Dioxide (22-30) mmol/L Anion Gap mmol/L BUN (9-20) mg/dL Creatinine (0.66-1.25) mg/dL Est GFR (CKD-EPI)AfAm (>60 ml/min/1.73 sqM) Est GFR (CKD-EPI)NonAf (>60 ml/min/1.73 sqM) Glucose (74-99) mg/dL POC Glucose (mg/dL) 400 H (75-99) mg/dL POC Glu Drilling Engineer ID Cat Raymundo Calcium (8.4-10.2) mg/dL Total Bilirubin (0.2-1.3) mg/dL AST (17-59) U/L ALT (4-49) U/L Alkaline Phosphatase (38-126) U/L Total Protein (6.3-8.2) g/dL Albumin (3.5-5.0) g/dL Amylase (30-110) U/L Lipase (23-300) U/L Urine Color Urine Appearance (Clear) Urine pH (5.0-8.0) Ur Specific [place] (1.001-1.035) Urine Protein (Negative) Urine Glucose (UA) (Negative) Urine Ketones (Negative) Urine Blood (Negative) Urine Nitrite (Negative) Urine Bilirubin (Negative) Urine Urobilinogen (<2.0) mg/dL Ur Leukocyte Esterase (Negative) Acetone, Qual (Negative) Critical Care Time Critical Care Time: Yes <Savanah Walls - Last Filed: 01/06/21 01:15> Critical Care Time: 32 minutes for management of insulin gtt (Savanah Walls) Disposition Is patient prescribed a controlled substance at d/c from ED?: No Time of Disposition: 16:28 <Charly Erazo - Last Filed: 01/05/21 16:24> <Savanah Walls - Last Filed: 01/06/21 01:15> Clinical Impression: Diabetic ketoacidosis Disposition: ADMITTED IP TO THIS HOSP Condition: Stable
[2021-01-05 16:44] LABS: Glucose,Whole Blood 400 mg/dL (75-99)
[2021-01-05] MEDS: INSULIN REGULAR 100 UNIT in SODIUM CHLORIDE 0.9% 100 ML IV SCH (17:10)
[2021-01-05] MEDS: SODIUM CHLORIDE 0.9% 1,000 ML IV SCH ×2 (17:16→20:40)
[2021-01-05 18:16] LABS: Glucose,Whole Blood 246 mg/dL (75-99)
[2021-01-05] MEDS: D5-0.45% NACL WITH KCL 20MEQ/L 1,000 ML IV SCH (18:34)
[2021-01-05 18:54] LABS: Glucose,Whole Blood 198 mg/dL (75-99)
[2021-01-05 20:04] LABS: Glucose,Whole Blood 205 mg/dL (75-99)
[2021-01-05 21:01] LABS: African American GFR (CKD) >90 (>60 ml/min/1.73 sqM); Anion Gap 12 mmol/L; Blood Urea Nitrogen 13 mg/dL (9-20); Carbon Dioxide 20 mmol/L (22-30); Chloride 105 mmol/L (98-107); Glucose 208 mg/dL (74-99); Non-African American GFR(CKD) >90 (>60 ml/min/1.73 sqM); Potassium 4.1 mmol/L (3.5-5.1); Sodium 137 mmol/L (137-145)
[2021-01-05 21:22] LABS: Glucose,Whole Blood 151 mg/dL (75-99)
[2021-01-05 22:28] LABS: Glucose,Whole Blood 133 mg/dL (75-99)
[2021-01-05 23:31] LABS: Glucose,Whole Blood 131 mg/dL (75-99)
[2021-01-06 00:35] LABS: Glucose,Whole Blood 141 mg/dL (75-99)
[2021-01-06 01:04] LABS: African American GFR (CKD) >90 (>60 ml/min/1.73 sqM); Anion Gap 8 mmol/L; Blood Urea Nitrogen 12 mg/dL (9-20); Carbon Dioxide 23 mmol/L (22-30); Chloride 106 mmol/L (98-107); Glucose 131 mg/dL (74-99); Non-African American GFR(CKD) >90 (>60 ml/min/1.73 sqM); Phosphorus 3.6 mg/dL (2.5-4.5); Potassium 3.9 mmol/L (3.5-5.1); Sodium 137 mmol/L (137-145)
[2021-01-06] MEDS: INSULIN DETEMIR (LEVEMIR) 100 UNIT/ML SYR SQ SCH ×2 (02:06→12:21)
[2021-01-06] MEDS: D5-0.45% NACL WITH KCL 20MEQ/L 1,000 ML IV SCH (02:10)
[2021-01-06] MEDS: INSULIN REGULAR 100 UNIT in SODIUM CHLORIDE 0.9% 100 ML IV SCH (03:06)
[2021-01-06 04:55] LABS: Glucose,Whole Blood 359 mg/dL (75-99)
[2021-01-06 07:27] LABS: Glucose,Whole Blood 343 mg/dL (75-99)
[2021-01-06] MEDS: INSULIN ASPART (NovoLOG) 100 UNIT/ML VIAL SQ SCH ×7 (09:03→20:47)
[2021-01-06 10:41] LABS: African American GFR (CKD) >90 (>60 ml/min/1.73 sqM); Anion Gap 11 mmol/L; Blood Urea Nitrogen 13 mg/dL (9-20); Calcium 9.4 mg/dL (8.4-10.2); Carbon Dioxide 20 mmol/L (22-30); Chloride 102 mmol/L (98-107); Glucose 456 mg/dL (74-99); Non-African American GFR(CKD) >90 (>60 ml/min/1.73 sqM); Phosphorus 3.8 mg/dL (2.5-4.5); Potassium 4.3 mmol/L (3.5-5.1); Sodium 133 mmol/L (137-145)
[2021-01-06 11:45] LABS: Glucose,Whole Blood 323 mg/dL (75-99)
[2021-01-06] MEDS ORDERED: cloNIDine HCL 0.1 MG TAB PO PRN (11:59)
--- NOTE | 2021-01-06 12:04 | P.HPIM ---
History of Present Illness This is a pleasant 40 years old male with past medical history of asthma, gastroesophageal reflux disease, memory impairment, sleep apnea on CPAP/BiPAP, chronic back pain with sciatica bilaterally, psoriasis hepatitis C which was tr eated and not currently active, anxiety depression and PTSD. Came from custodial for hyperglycemia for not feeling well. Patient also reports polyuria and polydipsia. He was dehydrated upon admission Patient also feels lethargic and tired, complaining of from headache about 6/10, also had numbness in his feet during the hyperglycemia which is resolved now. Also he was feeling some dizziness and see dose when he standup which is improving now He has some blurred vision most likely from patient states that he takes Cymbalta 60 mg twice daily and he thinks this too much and want to be lowered to 60 mg daily glucose level fluctuation.vitas looks stable, he is saturating 94% on room air, afebrile. unremarkable cbc and bmp and liver enzymes. glucose was elevated 492-498 on admission, and patient was dehydrated. urinalysis showing glucosuria and ketonuria but no evidence of infection. acetone positive anion gap on admission was elevated at 20, currently is closed to 8 The patient was on metformin in detail, not spelled out. Started on Levemir 21 mg 7 units of NovoLog with meals. His glucose was still more than 300 so we increased his Levemir to 30 mg daily Review of Systems CONSTITUTIONAL: No fever, no malaise, no fatigue. HEENT: No recent visual problems or hearing problems. Denied any sore throat. CARDIOVASCULAR: No orthopnea, PND, no palpitations, no syncope. PULMONARY: No shortness of breath, no cough, no hemoptysis. GASTROINTESTINAL: No diarrhea, no nausea, no vomiting, no abdominal pain. Normoactive bowel sounds. NEUROLOGICAL: No headaches, no weakness, no numbness. HEMATOLOGICAL: Denies any bleeding or petechiae. GENITOURINARY: Denies any burning micturition, frequency, or urgency. MUSCULOSKELETAL/RHEUMATOLOGICAL: Denies any joint pain, swelling, or any muscle pain. ENDOCRINE: Denies any polyuria or polydipsia. Past Medical History Past Medical History: Asthma, GERD/Reflux, Memory Impairment, Skin Disorder, Sleep Apnea/CPAP/BIPAP Additional Past Medical History / Comment(s): Chronic back pain. Sciaticia bilaterally,psoriasis."Short term memory loss". Hx Hepatitis C - "treated and not currently active." History of Any Multi-Drug Resistant Organisms: None Reported Past Surgical History: Cholecystectomy Additional Past Surgical History / Comment(s): PAIN CLINIC INJECTIONS Past Anesthesia/Blood Transfusion Reactions: No Reported Reaction Past Psychological History: Anxiety, Depression, PTSD Additional Psychological History / Comment(s): "short term memory loss" Smoking Status: Former smoker Past Alcohol Use History: None Reported Additional Past Alcohol Use History / Comment(s): STARTED SMOKING AT AGE 14. SMOKES 3/4 OF A PACK A DAY Past Drug Use History: Heroin, IV Drug Use, Methamphetamine Additional Drug Use History / Comment(s): using CBD oil daily, last used c ocaine/herion 17 months ago, pt states he has used meth "maybe 3 times in the past 3 years". - Past Family History Mother Family Medical History: No Reported History Medications and Allergies Home Medications Medication Instructions Recorded Confirmed Type DULoxetine HCL [Cymbalta] 60 mg PO BID 08/07/18 01/05/21 History Omeprazole 20 mg PO DAILY 08/07/18 01/05/21 History Insulin Regular [HumuLIN R] See Protocol SQ AC-TID 01/05/21 01/05/21 History Mirtazapine [Remeron] 30 mg PO HS 01/05/21 01/05/21 History cloNIDine HCL [Catapres] 0.1 mg PO ONCE PRN 01/05/21 01/05/21 History metFORMIN HCL 500 mg PO BID 01/05/21 01/05/21 History Allergies Allergy/AdvReac Type Severity Reaction Status Date / Time No Known Allergies Allergy Verified 01/05/21 16:51 Physical Exam Vitals: Vital Signs Temp Pulse Pulse Resp BP BP BP 01/06/21 04:00 98.4 F 85 18 131/70 01/06/21 00:00 98.5 F 87 18 124/75 01/05/21 20:00 98.6 F 91 18 127/84 01/05/21 18:58 98.1 F 104 H 20 142/80 01/05/21 17:16 94 20 112/77 01/05/21 14:43 98.5 F 117 H 18 124/92 Pulse Ox 01/06/21 04:00 94 L 01/06/21 00:00 93 L 01/05/21 20:00 98 01/05/21 18:58 98 01/05/21 17:16 96 01/05/21 14:43 95 Intake and Output 01/05/21 01/06/21 01/06/21 22:59 06:59 14:59 Intake Total 63.173 13.299 Balance 63.173 13.299 Intake: Intake, IV Titration 63.173 13.299 Amount Insulin Regular 100 unit 63.173 13.299 In Sodium Chloride 0.9% 100 ml @ 0.1 UNITS/KG/HR 11.957 mls/hr IV .Q8H27M [facility] Rx#:[id number] Other: Voiding Method Toilet Toilet Urinal Urinal # Voids 4 Weight 118.388 kg 118 kg -GENERAL: The patient is alert and oriented x3, not in any acute distress. Obese HEENT: Pupils are round and equally reacting to light. EOMI. No scleral icterus. No conjunctival pallor. Normocephalic, atraumatic. No pharyngeal erythema. No thyromegaly. CARDIOVASCULAR: S1 and S2 present. No murmurs, rubs, or gallops. PULMONARY: Chest is clear to auscultation, no wheezing or crackles. ABDOMEN: Soft, nontender, nondistended, normoactive bowel sounds. No palpable organomegaly. MUSCULOSKELETAL: No joint swelling or deformity. EXTREMITIES: No cyanosis, clubbing, or pedal edema. NEUROLOGICAL: Gross neurological examination did not reveal any focal deficits. SKIN: No rashes. No petechiae Results CBC & Chem 7: 01/05/21 15:21 01/06/21 09:31 Labs: Abnormal Lab Results - Last 24 Hours (Table) 01/05/21 01/05/21 01/05/21 Range/Units 14:47 15:21 15:21 VBG pH (7.31-7.41) VBG HCO3 (24-28) mmol/L Sodium 133 L (137-145) mmol/L Carbon Dioxide 15 L (22-30) mmol/L Creatinine (0.66-1.25) mg/dL Glucose 498 H (74-99) mg/dL POC Glucose (mg/dL) 492 H (75-99) mg/dL Calcium 10.5 H (8.4-10.2) mg/dL Alkaline Phosphatase 145 H (38-126) U/L Ur Specific [place] 1.036 H (1.001-1.035) Urine Glucose (UA) 4+ H (Negative) Urine Ketones 2+ H (Negative) 01/05/21 01/05/21 01/05/21 Range/Units 15:56 16:07 16:32 VBG pH 7.28 L (7.31-7.41) VBG HCO3 19 L (24-28) mmol/L Sodium (137-145) mmol/L Carbon Dioxide (22-30) mmol/L Creatinine (0.66-1.25) mg/dL Glucose (74-99) mg/dL POC Glucose (mg/dL) 400 H (75-99) mg/dL Calcium (8.4-10.2) mg/dL Alkaline Phosphatase (38-126) U/L Ur Specific [place] 1.036 H (1.001-1.035) Urine Glucose (UA) 4+ H (Negative) Urine Ketones 2+ H (Negative) 01/05/21 01/05/21 01/05/21 Range/Units 18:14 18:52 20:02 VBG pH (7.31-7.41) VBG HCO3 (24-28) mmol/L Sodium (137-145) mmol/L Carbon Dioxide (22-30) mmol/L Creatinine (0.66-1.25) mg/dL Glucose (74-99) mg/dL POC Glucose (mg/dL) 246 H 198 H 205 H (75-99) mg/dL Calcium (8.4-10.2) mg/dL Alkaline Phosphatase (38-126) U/L Ur Specific [place] (1.001-1.035) Urine Glucose (UA) (Negative) Urine Ketones (Negative) 01/05/21 01/05/21 01/05/21 Range/Units 20:08 21:20 22:26 VBG pH (7.31-7.41) VBG HCO3 (24-28) mmol/L Sodium (137-145) mmol/L Carbon Dioxide 20 L (22-30) mmol/L Creatinine 0.59 L (0.66-1.25) mg/dL Glucose 208 H (74-99) mg/dL POC Glucose (mg/dL) 151 H 133 H (75-99) mg/dL Calcium (8.4-10.2) mg/dL Alkaline Phosphatase (38-126) U/L Ur Specific [place] (1.001-1.035) Urine Glucose (UA) (Negative) Urine Ketones (Negative) 01/05/21 01/06/21 01/06/21 Range/Units 23:30 00:04 00:33 VBG pH (7.31-7.41) VBG HCO3 (24-28) mmol/L Sodium (137-145) mmol/L Carbon Dioxide (22-30) mmol/L Creatinine 0.57 L (0.66-1.25) mg/dL Glucose 131 H (74-99) mg/dL POC Glucose (mg/dL) 131 H 141 H (75-99) mg/dL Calcium (8.4-10.2) mg/dL Alkaline Phosphatase (38-126) U/L Ur Specific [place] (1.001-1.035) Urine Glucose (UA) (Negative) Urine Ketones (Negative) 01/06/21 01/06/21 Range/Units 04:53 07:23 VBG pH (7.31-7.41) VBG HCO3 (24-28) mmol/L Sodium (137-145) mmol/L Carbon Dioxide (22-30) mmol/L Creatinine (0.66-1.25) mg/dL Glucose (74-99) mg/dL POC Glucose (mg/dL) 359 H 343 H (75-99) mg/dL Calcium (8.4-10.2) mg/dL Alkaline Phosphatase (38-126) U/L Ur Specific [place] (1.001-1.035) Urine Glucose (UA) (Negative) Urine Ketones (Negative) Assessment and Plan Assessment: Diabetes mellitus with hyperglycemia, present on admission Diabetic ketoacidosis, resolved Sleep apnea on CPAP/BiPAP chronic back pain with sciatica bilaterally History of gastroesophageal reflux disease Memory impairment History of psoriasis History of hepatitis C which is treated and not active currently Obesity with BMI of 34.3 Plan: This is a pleasant 40 years old male who presents with diabetes, he was treated for diabetic per protocol and switch to [id number] units daily and novolog 7 units with meals. keep monitoring glucose. 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 Labs and medication were reviewed.. Continue same treatment. Continue with symptomatic treatment. Resume home medication. Monitor lytes and vitals. DVT and GI prophylaxis. Further recommendations depends on the clinical course of the patient DVT prophylaxis: Subcutaneous heparin GI Prophylaxis: Pepcid PT/OT: Pending Prognosis is guarded
[2021-01-06] MEDS: ACETAMINOPHEN TAB 500 MG TAB PO PRN (12:45)
[2021-01-06] MEDS: DULoxetine HCL 60 MG CAPSULE.DR PO SCH (12:46)
[2021-01-06 15:07] VITALS: BMI 34.3
[2021-01-06 17:05] LABS: Glucose,Whole Blood 277 mg/dL (75-99)
[2021-01-06 20:13] LABS: Glucose,Whole Blood 295 mg/dL (75-99)
[2021-01-06] MEDS: MIRTAZAPINE 15 MG TAB PO SCH (20:47)
[2021-01-07] MEDS: ACETAMINOPHEN TAB 500 MG TAB PO PRN ×2 (05:04→21:20)
[2021-01-07 07:29] LABS: Glucose,Whole Blood 301 mg/dL (75-99)
[2021-01-07] MEDS: INSULIN DETEMIR (LEVEMIR) 100 UNIT/ML SYR SQ SCH (08:03)
[2021-01-07] MEDS: INSULIN ASPART (NovoLOG) 100 UNIT/ML VIAL SQ SCH ×7 (08:03→21:18)
[2021-01-07] MEDS: DULoxetine HCL 60 MG CAPSULE.DR PO SCH (08:06)
[2021-01-07] MEDS ORDERED: INSULIN DETEMIR (LEVEMIR) 100 UNIT/ML SYR SQ ONE ×2 (12:00→12:46)
[2021-01-07 12:07] LABS: Glucose,Whole Blood 335 mg/dL (75-99)
[2021-01-07] MEDS ORDERED: DOCUSATE 100 MG CAP PO PRN (15:35)
[2021-01-07 17:20] LABS: Glucose,Whole Blood 275 mg/dL (75-99)
[2021-01-07 20:15] LABS: Glucose,Whole Blood 363 mg/dL (75-99)
[2021-01-07] MEDS: HEPARIN SODIUM,PORCINE/PF 5,000 UNIT/0.5 ML SYRINGE SQ SCH (21:17)
[2021-01-07] MEDS: MIRTAZAPINE 15 MG TAB PO SCH (21:18)
[2021-01-07] MEDS: FAMOTIDINE 20 MG TAB PO SCH (21:18)
[2021-01-08 02:04] LABS: Glucose,Whole Blood 397 mg/dL (75-99)
[2021-01-08] MEDS: INSULIN ASPART (NovoLOG) 100 UNIT/ML VIAL SQ SCH ×8 (02:22→21:55)
[2021-01-08] MEDS ORDERED: INSULIN DETEMIR (LEVEMIR) 100 UNIT/ML SYR SQ SCH ×3 (07:00→22:00)
[2021-01-08 07:13] LABS: Glucose,Whole Blood 303 mg/dL (75-99)
[2021-01-08] MEDS: DULoxetine HCL 60 MG CAPSULE.DR PO SCH (07:33)
[2021-01-08] MEDS: HEPARIN SODIUM,PORCINE/PF 5,000 UNIT/0.5 ML SYRINGE SQ SCH ×2 (07:33→21:55)
[2021-01-08] MEDS ORDERED: INSULIN DETEMIR (LEVEMIR) 100 UNIT/ML SYR SQ ONE (10:44)
[2021-01-08] MEDS: ACETAMINOPHEN TAB 500 MG TAB PO PRN (11:26)
[2021-01-08 12:21] LABS: Glucose,Whole Blood 405 mg/dL (75-99)
[2021-01-08 14:56] LABS: Glucose,Whole Blood 388 mg/dL (75-99)
[2021-01-08 17:05] LABS: Glucose,Whole Blood 255 mg/dL (75-99)
--- NOTE | 2021-01-08 20:44 | P.PN ---
Subjective This is a pleasant 40 years old male with past medical history of asthma, gastroesophageal reflux disease, memory impairment, sleep apnea on CPAP/BiPAP, chronic back pain with sciatica bilaterally, psoriasis hepatitis C which was treated and not currently active, anxiety depression and PTSD. [facility] for not feeling well. Patient also reports polyuria and polydipsia. He was dehydrated upon admission Patient also feels lethargic and tired, complaining of from headache about 6/10, also had numbness in his feet during the hyperglycemia which is resolved now. Also he was feeling some dizziness and see dose when he standup which is improving now He has some blurred vision most likely from patient states that he takes Cymbalta 60 mg twice daily and he thinks this too much and want to be lowered to 60 mg daily glucose level fluctuation.vitas looks stable, he is saturating 94% on room air, afebrile. unremarkable cbc and bmp and liver enzymes. glucose was elevated 492-498 on admission, and patient was dehydrated. urinalysis showing glucosuria and ketonuria but no evidence of infection. acetone positive anion gap on admission was elevated at 20, currently is closed to 8 The patient was on metformin in detail, not spelled out. Started on Levemir 21 mg 7 units of NovoLog with meals. His glucose was still more than 300 so we increased his Levemir to 30 mg daily 01/07/2021 Patient is awake and alert, complaining of a mild headache. He is on consistent carbohydrate diet and tolerates that well Hemodynamically stable. His sugar is still elevated more than 300, will increase insulin and keep monitoring for now with Accu-Chek Objective - Vital Signs Vital signs: Vital Signs Temp 98.3 F 01/07/21 19:30 Pulse 89 01/07/21 19:30 Resp 16 01/07/21 19:30 BP 138/80 01/07/21 19:30 Pulse Ox 95 01/07/21 19:30 Intake & Output 01/07/21 01/07/21 01/08/21 06:59 18:59 06:59 Intake Total 10 1260 Output Total 800 Balance 10 460 Weight 119.5 kg Intake: IV 10 Invasive Line 1 10 Oral 1260 Output: Urine 800 Other: Voiding Method Toilet Toilet # Voids 1 - Exam -GENERAL: The patient is alert and oriented x3, not in any acute distress. Obese HEENT: Pupils are round and equally reacting to light. EOMI. No scleral icterus. No conjunctival pallor. Normocephalic, atraumatic. No pharyngeal erythema. No thyromegaly. CARDIOVASCULAR: S1 and S2 present. No murmurs, rubs, or gallops. PULMONARY: Chest is clear to auscultation, no wheezing or crackles. ABDOMEN: Soft, nontender, nondistended, normoactive bowel sounds. No palpable organomegaly. MUSCULOSKELETAL: No joint swelling or deformity. EXTREMITIES: No cyanosis, clubbing, or pedal edema. NEUROLOGICAL: Gross neurological examination did not reveal any focal deficits. SKIN: No rashes. no petechiae. - Labs CBC & Chem 7: 01/05/21 15:21 01/06/21 09:31 Labs: Abnormal Lab Results - Last 24 Hours (Table) 01/07/21 01/07/21 01/07/21 Range/Units 07:27 12:05 17:18 POC Glucose (mg/dL) 301 H 335 H 275 H (75-99) mg/dL 01/07/21 Range/Units 20:14 POC Glucose (mg/dL) 363 H (75-99) mg/dL Assessment and Plan Assessment: Diabetes mellitus with hyperglycemia, present on admission Diabetic ketoacidosis, resolved Sleep apnea on CPAP/BiPAP chronic back pain with sciatica bilaterally History of gastroesophageal reflux disease Memory impairment History of psoriasis History of hepatitis C which is treated and not active currently Obesity with BMI of 34.3 Plan: This is a pleasant 40 years old male who presents with diabetes, he was treated for diabetic per protocol and switch to [id number] units daily and novolog 7 units with meals. keep monitoring glucose. 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 Labs and medication were reviewed.. Continue same treatment. Continue with symptomatic treatment. Resume home medication. Monitor lytes and vitals. DVT and GI prophylaxis. Further recommendations depends on the clinical course of the patient DVT prophylaxis: Subcutaneous heparin GI Prophylaxis: Pepcid PT/OT: Pending Prognosis is guarded
--- NOTE | 2021-01-08 20:46 | P.PN ---
Subjective This is a pleasant 40 years old male with past medical history of asthma, gastroesophageal reflux disease, memory impairment, sleep apnea on CPAP/BiPAP, chronic back pain with sciatica bilaterally, psoriasis hepatitis C which was treated and not currently active, anxiety depression and PTSD. [facility]ame from [facility] for hyperglycemia for not feeling well. Patient also reports polyuria and polydipsia. He was dehydrated upon admission Patient also feels lethargic and tired, complaining of from headache about 6/10, also had numbness in his feet during the hyperglycemia which is resolved now. Also he was feeling some dizziness and see dose when he standup which is improving now He has some blurred vision most likely from patient states that he takes Cymbalta 60 mg twice daily and he thinks this too much and want to be lowered to 60 mg daily glucose level fluctuation.vitas looks stable, he is saturating 94% on room air, afebrile. unremarkable cbc and bmp and liver enzymes. glucose was elevated [phone] on admission, and patient was dehydrated. urinalysis showing glucosuria and ketonuria but no evidence of infection. acetone positive anion gap on admission was elevated at 20, currently is closed to 8 The patient was on metformin in detail, not spelled out. Started on Levemir 21 mg 7 units of NovoLog with meals. His glucose was still more than 300 so we increased his Levemir to 30 mg daily 01/07/2021 Patient is awake and alert, complaining of a mild headache. He is on consistent carbohydrate diet and tolerates that well Hemodynamically stable. His sugar is still elevated more than 300, will increase insulin and keep monitoring for now with Accu-Chek 01/08/2021 Patient clinically is stable however sugar still fluctuated significantly and not controlled Levemir dose was increased today to 45 units, in the afternoon on his sugar was more than 400 while before launch was 255 Because of fluctuation and sugar with preferred to monitor him for 1 more day Possible discharge in 24 hours once sugar is stable are more controlled Patient is counseled extensively to lose weight, keep checking his sugar 4 times a day before each meal and at bedtime. Patient was instructed to follow up with his physician at the [facility], he says that he will leave gel in about 2 months, then he was instructed to follow up with his PCP Dr. benoit in one week once the [facility] and he verbalized understanding and acceptance Objective - Vital Signs Vital signs: Vital Signs Temp 98.1 F 01/08/21 07:36 Pulse 75 01/08/21 07:36 Resp 16 01/08/21 07:36 BP 120/86 01/08/21 07:36 Pulse Ox 92 L 01/08/21 07:36 Intake & Output 01/07/21 01/08/21 01/08/21 18:59 06:59 18:59 Intake Total 1260 Output Total 800 Balance 460 Weight 120.5 kg Intake: Oral 1260 Output: Urine 800 Other: Voiding Method Toilet Toilet - Exam -GENERAL: The patient is alert and oriented x3, not in any acute distress. Obese HEENT: Pupils are round and equally reacting to light. EOMI. No scleral icterus. No conjunctival pallor. Normocephalic, atraumatic. No pharyngeal erythema. No thyromegaly. CARDIOVASCULAR: S1 and S2 present. No murmurs, rubs, or gallops. PULMONARY: Chest is clear to auscultation, no wheezing or crackles. ABDOMEN: Soft, nontender, nondistended, normoactive bowel sounds. No palpable organomegaly. MUSCULOSKELETAL: No joint swelling or deformity. EXTREMITIES: No cyanosis, clubbing, or pedal edema. NEUROLOGICAL: Gross neurological examination did not reveal any focal deficits. SKIN: No rashes. no petechiae. - Labs CBC & Chem 7: 01/05/21 15:21 01/06/21 09:31 Labs: Abnormal Lab Results - Last 24 Hours (Table) 01/07/21 01/07/21 01/07/21 Range/Units 12:05 17:18 20:14 POC Glucose (mg/dL) 335 H 275 H 363 H (75-99) mg/dL 01/08/21 01/08/21 Range/Units 02:03 07:11 POC Glucose (mg/dL) 397 H 303 H (75-99) mg/dL Assessment and Plan Assessment: Diabetes mellitus with hyperglycemia, present on admission Diabetic ketoacidosis, resolved Sleep apnea on CPAP/BiPAP chronic back pain with sciatica bilaterally. Mild and controlled History of gastroesophageal reflux disease Memory impairment History of psoriasis History of hepatitis C which is treated and not active currently Obesity with BMI of 34.3 Plan: This is a pleasant 40 years old male who presents with diabetes, he was treated for diabetic per protocol and switch to levemir 45 units daily and novolog 10 units with meals. 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 Continue same treatment. Continue with sy mptomatic treatment. Resume home medication. Monitor lytes and vitals. DVT and GI prophylaxis. Further recommendations depends on the clinical course of the patient DVT prophylaxis: Subcutaneous heparin GI Prophylaxis: Pepcid Possible discharge in 24-48 hours once sugar control
[2021-01-08 21:33] LABS: Glucose,Whole Blood 413 mg/dL (75-99)
[2021-01-08] MEDS: MIRTAZAPINE 15 MG TAB PO SCH (21:57)
[2021-01-08] MEDS: FAMOTIDINE 20 MG TAB PO SCH (21:57)
[2021-01-09 06:48] LABS: Glucose,Whole Blood 278 mg/dL (75-99)
[2021-01-09] MEDS ORDERED: INSULIN DETEMIR (LEVEMIR) 100 UNIT/ML SYR SQ SCH ×2 (07:00)
[2021-01-09] MEDS: INSULIN ASPART (NovoLOG) 100 UNIT/ML VIAL SQ SCH ×6 (07:36→17:15)
[2021-01-09] MEDS: DULoxetine HCL 60 MG CAPSULE.DR PO SCH (07:37)
[2021-01-09] MEDS: HEPARIN SODIUM,PORCINE/PF 5,000 UNIT/0.5 ML SYRINGE SQ SCH (07:37)
[2021-01-09 12:25] LABS: Glucose,Whole Blood 214 mg/dL (75-99)
[2021-01-09 15:42] VITALS: BP 124/78; PULSE 83; RESP 18; TEMP 97.7
[2021-01-09 16:58] LABS: Glucose,Whole Blood 325 mg/dL (75-99)
== END 2021-01-09 19:02 | DRG 639 ==
LOC: EC 14:32 → 3SCARD 16:33 → 4SSUR 01-07 17:14
PROVIDERS: ADMIT Internal Medicine; ATTEND Internal Medicine
DX: E11.10 Type 2 diabetes mellitus with ketoacidosis without coma (principal); E86.0 Dehydration; F32.9 Major depressive disorder, single episode, unspecified; F43.10 Post-traumatic stress disorder, unspecified; G47.30 Sleep apnea, unspecified; G89.29 Other chronic pain; J45.909 Unspecified asthma, uncomplicated; Z79.4 Long term (current) use of insulin; Z79.899 Other long term (current) drug therapy; Z87.891 Personal history of nicotine dependence; K21.9 Gastro-esophageal reflux disease without esophagitis; L40.9 Psoriasis, unspecified; Z86.19 Personal history of other infectious and parasitic diseases; M54.32 Sciatica, left side; M54.31 Sciatica, right side
CPT/HCPCS: 36415; 80048; 80051; 80053; 81003; 82009; 82150; 82565; 82803; 82947; 83690; 84100; 84520; 85025; 96374; 96375; 99291

== ENCOUNTER → 2021-06-16 | Outpatient (CLI) | payer OTHER ==
--- NOTE | 2021-06-17 08:33 | US ---
EXAMINATION TYPE: US venous doppler duplex LE DATE OF EXAM: 06/16/2021 4:12 PM COMPARISON: NONE CLINICAL HISTORY: R23.1 cool skin, R20.0 Numbness of toes. SIDE PERFORMED: Bilateral TECHNIQUE: The lower extremity deep venous system is examined utilizing real time linear array sonog aris with graded compression, doppler sonography and color-flow sonography. VESSELS IMAGED: Common Femoral Vein Deep Femoral Vein Greater Saphenous Vein * Femoral Vein Popliteal Vein Small Saphenous Vein * Proximal Calf Veins (* superficial vessels) Right Leg: Appears negative for DVT Left Leg: Appears negative for DVT IMPRESSION: No evidence for DVT at this time.
== END | disposition home or self-care (01) ==
LOC: RADUSWWP 15:41
PROVIDERS: ATTEND Family Medicine
DX: R20.0 Anesthesia of skin (principal); L81.9 Disorder of pigmentation, unspecified
CPT/HCPCS: 93970